=== PATIENT | male | born 1960 | race Caucasian/White ===

== ENCOUNTER 2022-08-07 11:01 | Inpatient (IN) | payer OTHER ==
--- NOTE | 2022-08-07 11:59 | ED ---
Weakness HPI - General Chief complaint: Weakness Stated complaint: Lethargic, back pain Time Seen by Provider: 08/07/22 11:26 Source: patient, RN notes reviewed Mode of arrival: wheelchair Limitations: no limitations - History of Present Illness Initial comments: This is a 61-year-old male who presents to the emergency department for generalized weakness. States that this has been progressive over the last several months. 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 His boss has also taken notice of this and recommended he come to the emergency department for evaluation. He has associated chest pain, shortness of breath, and back pain, which have also been progressive over the last few months. He does report feeling dizzy when he stands up too quickly. In general he attributes this weakness to aging. Patient is homeless and does not follow with any providers regularly. Denies any fevers, chills, sore throat, cough, palpitations, abdominal pain, nausea, vomiting, diarrhea, or headaches. MD Complaint: generalized weakness, lack of energy - Related Data Home Medications Medication Instructions Recorded Confirmed No Known Home Medications 08/07/22 08/07/22 Allergies Allergy/AdvReac Type Severity Reaction Status Date / Time Penicillins Allergy Rash/Hives Verified 08/07/22 16:01 Review of Systems ROS Statement: Those systems with pertinent positive or pertinent negative responses have been documented in the HPI. ROS Other: All systems not noted in ROS Statement are negative. Past Medical History Past Medical History: No Reported History History of Any Multi-Drug Resistant Organisms: None Reported Past Surgical History: Tonsillectomy Past Psychological History: No Psychological Hx Reported Smoking Status: Current every day smoker Past Alcohol Use History: None Reported Past Drug Use History: None Reported General Exam Limitations: no limitations General appearance: alert, other (Disheveled) Head exam: Present: atraumatic, normocephalic, normal inspection Respiratory exam: Present: normal lung sounds bilaterally. Absent: respiratory distress, wheezes, rales, rhonchi, stridor Cardiovascular Exam: Present: regular rate, normal rhythm, normal heart sounds. Absent: systolic murmur, diastolic murmur, rubs, gallop, clicks Neurological exam: Present: alert, oriented X3, CN II-XII intact Psychiatric exam: Present: normal affect, normal mood Skin exam: Present: warm, dry, intact, normal color. Absent: rash Course Vital Signs 08/07/22 08/07/22 08/07/22 11:20 12:14 14:37 Temperature 98.1 F Pulse Rate 95 100 92 Respiratory 16 18 16 Rate Blood Pressure 104/66 102/87 99/60 O2 Sat by Pulse 98 98 96 Oximetry Medical Decision Making - Medical Decision Making This is a 61-year-old male who presents to the emergency department for weakness. Was pt. sent in by a medical professional or institution? @ -No Did you speak to anyone other than the patient for history? @ -No Did you review nursing and triage notes? @ -Yes, and I agree, it is accurate with regards to the patient's symptoms. Were old charts reviewed? @ -No Differential Diagnosis? @ -Differential Weakness: Hypoglycemia, shock, sepsis, hyponatremia, anemia, infection, VT, ETOH, adverse medicine reaction, overdose, stroke, this is not meant to be an all-inclusive list. EKG interpreted by me (3pts min.)? @ -Sinus rhythm. Ventricular rate 87 bpm, ID interval 146 ms, QRS duration 109 ms, QTC 427 ms. X-rays interpreted by me (1pt min.)? @ -Chest x-ray obtained. My interpretation identifies a right upper lobe lung mass. CT interpreted by me (1pt min.)? @ -Computed tomography scan of the chest obtained. My interpretation again identifies the right upper lobe lung mass. What testing was considered but not performed? (CT, X-rays, U/S, labs)? Why? @ -None What meds were considered but not given? Why? @ -None Did you discuss the management of the patient with other professionals? @ -Yes, Dr. Vee, who accepts the patient for admission. Did you reconcile home meds? @ -Yes Was smoking cessation discussed for >3mins.? @ -I discussed smoking cessation for greater than 3 minutes. The risk of s moking were discussed with the patient including but not limited to risks of cancer, stroke, coronary artery disease and COPD. Also discussed with patient were multiple methods of quitting smoking. Lastly we discussed the financial cost of smoking. Was critical care preformed (if so, how long)? @ -No Were there social determinants of health that impacted care today? How? (Homelessness, low income, unemployed, alcoholism, drug addiction, t ransportation, low edu. Level, literacy, decrease access to med. care, [facility], rehab)? @ -The patient is homeless, decreasing his access to healthcare and contributing to his poor overall health status. Was there de-escalation of care discussed even if they declined? (Discuss DNR or withdrawal of care, Hospice)? @ -No What co-morbidities impacted this encounter? (DM, HTN, Smoking, COPD, CAD, Cancer, CVA, Hep., AIDS, mental health diagnosis, sleep apnea, morbid obesity)? @ -Tobacco use Was patient admitted / discharged? @ -Admitted. Lab work obtained with findings suggestive of anemia and hyponatremia. Chest x-ray obtained initially revealing a right suprahilar mass. We subsequently obtained a computed tomography scan of the chest. This revealed a suspicious right upper lobe mass with possible metastases to the bilateral adrenal glands. Patient also has positive orthostatics. The patient is noted to be homeless and does not follow with any providers regularly. There is concern that he will be lost to follow-up if he were to be discharged to follow-up on an outpatient basis. Will admit patient to medicine with pulmonology and hematology/oncology consults for further evaluation of possible malignancy. Undiagnosed new problem with uncertain prognosis? @ -None Drug Therapy requiring intensive monitoring for toxicity (Heparin, Nitro, Insulin, Cardizem)? @ -None Were any procedures done? @ -None Diagnosis/symptom? @ -Weakness, chest pain, SOB Acute, or Chronic, or Acute on Chronic? @ -Chronic Uncomplicated (without systemic symptoms) or Complicated (systemic symptoms)? @ -Complicated Side effects of treatment? @ -None Exacerbation, Progression, or Severe Exacerbation] @ -Progression Poses a threat to life or bodily function? @ -Yes Diagnosis/symptom? @ -Right lung mass Acute, or Chronic, or Acute on Chronic? @ -Likely chronic, but newly diagnosed Uncomplicated (without systemic symptoms) or Complicated (systemic symptoms)? @ -Complicated Side effects of treatment? @ -None Exacerbation, Progression, or Severe Exacerbation] @ -Progression Poses a threat to life or bodily function? @ -Yes This case was discussed in detail with the attending ED physician, Dr. Ji. Presentation, findings, and treatment plan discussed in detail as well. - Lab Data Result diagrams: 08/07/22 11:51 08/07/22 11:51 Lab Results 08/07/22 08/07/22 08/07/22 Range/Units 11:51 11:51 11:51 WBC 4.4 (3.8-10.6) k/uL RBC 3.50 L (4.30-5.90) m/uL Hgb 8.2 L (13.0-17.5) gm/dL Hct 26.4 L (39.0-53.0) % MCV 75.4 L (80.0-100.0) fL MCH 23.4 L (25.0-35.0) pg MCHC 31.1 (31.0-37.0) g/dL RDW 17.2 H (11.5-15.5) % Plt Count 450 (150-450) k/uL MPV 6.7 Neutrophils % 69 % Lymphocytes % 18 % Monocytes % 8 % Eosinophils % 3 % Basophils % 0 % Neutrophils # 3.0 (1.3-7.7) k/uL Lymphocytes # 0.8 L (1.0-4.8) k/uL Monocytes # 0.3 (0-1.0) k/uL Eosinophils # 0.1 (0-0.7) k/uL Basophils # 0.0 (0-0.2) k/uL Hypochromasia Slight Anisocytosis Slight Microcytosis Slight PT 10.6 (9.0-12.0) sec INR 1.0 (<1.2) APTT 32.8 H (22.0-30.0) sec Sodium (137-145) mmol/L Potassium (3.5-5.1) mmol/L Chloride (98-107) mmol/L Carbon Dioxide (22-30) mmol/L Anion Gap mmol/L BUN (9-20) mg/dL Creatinine (0.66-1.25) mg/dL Est GFR (CKD-EPI)AfAm (>60 ml/min/1.73 sqM) Est GFR (CKD-EPI)NonAf (>60 ml/min/1.73 sqM) Glucose (74-99) mg/dL Plasma Lactic Acid Richard (0.7-2.0) mmol/L Calcium (8.4-10.2) mg/dL Phosphorus (2.5-4.5) mg/dL Magnesium (1.6-2.3) mg/dL Total Bilirubin (0.2-1.3) mg/dL AST (17-59) U/L ALT (4-49) U/L Alkaline Phosphatase (38-126) U/L Troponin I (0.000-0.034) ng/mL Total Protein (6.3-8.2) g/dL Albumin (3.5-5.0) g/dL TSH (0.465-4.680) mIU/L Urine Color Urine Appearance (Clear) Urine pH (5.0-8.0) Ur Specific Haddock (1.001-1.035) Urine Protein (Negative) Urine Glucose (UA) (Negative) Urine Ketones (Negative) Urine Blood (Negative) Urine Nitrite (Negative) Urine Bilirubin (Negative) Urine Urobilinogen (<2.0) mg/dL Ur Leukocyte Esterase (Negative) Heterophile Antibody Negative (Negative) 08/07/22 08/07/22 08/07/22 Range/Units 11:51 11:51 11:51 WBC (3.8-10.6) k/uL RBC (4.30-5.90) m/uL Hgb (13.0-17.5) gm/dL Hct (39.0-53.0) % MCV (80.0-100.0) fL MCH (25.0-35.0) pg MCHC (31.0-37.0) g/dL RDW (11.5-15.5) % Plt Count (150-450) k/uL MPV Neutrophils % % Lymphocytes % % Monocytes % % Eosinophils % % Basophils % % Neutrophils # (1.3-7.7) k/uL Lymphocytes # (1.0-4.8) k/uL Monocytes # (0-1.0) k/uL Eosinophils # (0-0.7) k/uL Basophils # (0-0.2) k/uL Hypochromasia Anisocytosis Microcytosis PT (9.0-12.0) sec INR (<1.2) APTT (22.0-30.0) sec Sodium 133 L (137-145) mmol/L Potassium 4.2 (3.5-5.1) mmol/L Chloride 97 L (98-107) mmol/L Carbon Dioxide 27 (22-30) mmol/L Anion Gap 9 mmol/L BUN 10 (9-20) mg/dL Creatinine 0.60 L (0.66-1.25) mg/dL Est GFR (CKD-EPI)AfAm >90 (>60 ml/min/1.73 sqM) Est GFR (CKD-EPI)NonAf >90 (>60 ml/min/1.73 sqM) Glucose 103 H (74-99) mg/dL Plasma Lactic Acid Richard 0.7 (0.7-2.0) mmol/L Calcium 8.7 (8.4-10.2) mg/dL Phosphorus 4.3 (2.5-4.5) mg/dL Magnesium 2.2 (1.6-2.3) mg/dL Total Bilirubin 0.4 (0.2-1.3) mg/dL AST 21 (17-59) U/L ALT 18 (4-49) U/L Alkaline Phosphatase 83 (38-126) U/L Troponin I (0.000-0.034) ng/mL Total Protein 7.0 (6.3-8.2) g/dL Albumin 3.5 (3.5-5.0) g/dL TSH 0.654 (0.465-4.680) mIU/L Urine Color Light Yellow Urine Appearance Clear (Clear) Urine pH 7.5 (5.0-8.0) Ur Specific Haddock 1.010 (1.001-1.035) Urine Protein Negative (Negative) Urine Glucose (UA) Negative (Negative) Urine Ketones Negative (Negative) Urine Blood Negative (Negative) Urine Nitrite Negative (Negative) Urine Bilirubin Negative (Negative) Urine Urobilinogen <2.0 (<2.0) mg/dL Ur Leukocyte Esterase Negative (Negative) Heterophile Antibody (Negative) 08/07/22 Range/Units 11:51 WBC (3.8-10.6) k/uL RBC (4.30-5.90) m/uL Hgb (13.0-17.5) gm/dL Hct (39.0-53.0) % MCV (80.0-100.0) fL MCH (25.0-35.0) pg MCHC (31.0-37.0) g/dL RDW (11.5-15.5) % Plt Count (150-450) k/uL MPV Neutrophils % % Lymphocytes % % Monocytes % % Eosinophils % % Basophils % % Neutrophils # (1.3-7.7) k/uL Lymphocytes # (1.0-4.8) k/uL Monocytes # (0-1.0) k/uL Eosinophils # (0-0.7) k/uL Basophils # (0-0.2) k/uL Hypochromasia Anisocytosis Microcytosis PT (9.0-12.0) sec INR (<1.2) APTT (22.0-30.0) sec Sodium (137-145) mmol/L Potassium (3.5-5.1) mmol/L Chloride (98-107) mmol/L Carbon Dioxide (22-30) mmol/L Anion Gap mmol/L BUN (9-20) mg/dL Creatinine (0.66-1.25) mg/dL Est GFR (CKD-EPI)AfAm (>60 ml/min/1.73 sqM) Est GFR (CKD-EPI)NonAf (>60 ml/min/1.73 sqM) Glucose (74-99) mg/dL Plasma Lactic Acid Richard (0.7-2.0) mmol/L Calcium (8.4-10.2) mg/dL Phosphorus (2.5-4.5) mg/dL Magnesium (1.6-2.3) mg/dL Total Bilirubin (0.2-1.3) mg/dL AST (17-59) U/L ALT (4-49) U/L Alkaline Phosphatase (38-126) U/L Troponin I <0.012 (0.000-0.034) ng/mL Total Protein (6.3-8.2) g/dL Albumin (3.5-5.0) g/dL TSH (0.465-4.680) mIU/L Urine Color Urine Appearance (Clear) Urine pH (5.0-8.0) Ur Specific Haddock (1.001-1.035) Urine Protein (Negative) Urine Glucose (UA) (Negative) Urine Ketones (Negative) Urine Blood (Negative) Urine Nitrite (Negative) Urine Bilirubin (Negative) Urine Urobilinogen (<2.0) mg/dL Ur Leukocyte Esterase (Negative) Heterophile Antibody (Negative) - Radiology Data Radiology results: report reviewed, image reviewed Disposition Clinical Impression: Weakness, Lung mass Disposition: ADMITTED IP TO THIS HOSP
[2022-08-07 12:01] LABS: Anisocytosis Slight; Basophils % (A) 0 %; Eosinophils # (A) 0.1 k/uL (0-0.7); Eosinophils % (A) 3 %; HCT 26.4 % (39.0-53.0); HGB 8.2 gm/dL (13.0-17.5); Hypochromasia Slight; Lymphocytes # (A) 0.8 k/uL (1.0-4.8); Lymphocytes % (A) 18 %; MCH 23.4 pg (25.0-35.0); MCHC 31.1 g/dL (31.0-37.0); MCV 75.4 fL (80.0-100.0); Mean Platelet Volume 6.7; Microcytosis Slight; Monocytes # (A) 0.3 k/uL (0-1.0); Monocytes % (A) 8 %; Neutrophils % (A) 69 %; Platelet Count 450 k/uL (150-450); RDW 17.2 % (11.5-15.5); WBC 4.4 k/uL (3.8-10.6)
[2022-08-07 12:10] LABS: Partial Thromboplastin Time 32.8 sec (22.0-30.0); Prothrombin Time 10.6 sec (9.0-12.0)
[2022-08-07] MEDS ORDERED: SODIUM CHLORIDE 0.9% 1,000 ML IV STA (12:16)
--- NOTE | 2022-08-07 12:18 | XR ---
EXAMINATION TYPE: XR chest 2V DATE OF EXAM: 08/07/2022 COMPARISON: NONE HISTORY: Shortness of breath TECHNIQUE: Frontal and lateral views of the chest are obtained. FINDINGS: Scattered senescent parenchymal changes noted. Hyperinflation compatible with COPD. There is right suprahilar mass measuring 4.4 cm. There is also adjacent nodular density measuring 1.8 cm. The remainder of the lungs are clear. Heart size is stable. Mediastinal structures are stable and grossly unremarkable. No evidence for hilar prominence. Degenerative changes dorsal spine. IMPRESSION: 1. There is right suprahilar mass measuring 4.4 cm. There is also adjacent nodular density measuring 1.8 cm. The remainder of the lungs are clear.
[2022-08-07 12:21] LABS: ALT 18 U/L (4-49); AST 21 U/L (17-59); African American GFR (CKD) >90 (>60 ml/min/1.73 sqM); Albumin 3.5 g/dL (3.5-5.0); Alkaline Phosphatase 83 U/L (38-126); Anion Gap 9 mmol/L; Blood Urea Nitrogen 10 mg/dL (9-20); Calcium 8.7 mg/dL (8.4-10.2); Carbon Dioxide 27 mmol/L (22-30); Chloride 97 mmol/L (98-107); Glucose 103 mg/dL (74-99); Magnesium 2.2 mg/dL (1.6-2.3); Non-African American GFR(CKD) >90 (>60 ml/min/1.73 sqM); Phosphorus 4.3 mg/dL (2.5-4.5); Potassium 4.2 mmol/L (3.5-5.1); Sodium 133 mmol/L (137-145); Total Bilirubin 0.4 mg/dL (0.2-1.3)
[2022-08-07] MEDS ORDERED: RX INFO: IV CONTRAST WAS GIVEN 1 EACH MISC MISCELLANE PRN (12:40)
[2022-08-07 13:14] LABS: Appearance,Urine Clear (Clear); Bilirubin,Urine Negative (Negative); Blood,Urine Negative (Negative); Color,Urine Light Yellow; Glucose,Urine (UA) Negative (Negative); Ketones,Urine Negative (Negative); Leukocyte Esterase,Urine Negative (Negative); Nitrite,Urine Negative (Negative); PH, Urine 7.5 (5.0-8.0); Protein,Urine Negative (Negative); Urobilinogen,Urine <2.0 mg/dL (<2.0)
--- NOTE | 2022-08-07 13:14 | CT ---
EXAMINATION TYPE: CT chest w con DATE OF EXAM: 08/07/2022 COMPARISON: Chest radiograph same day HISTORY: Lung mass CT DLP: 327 mGycm Automated exposure control for dose reduction was used. CONTRAST: CT scan of the chest is performed with IV Contrast, patient injected with 100 mL of Isovue 300. FINDINGS: LUNGS: There is a solid mass right upper lobe with irregular margins measuring approximately 3.7 cm c raniocaudal by 3.1 cm transverse by 3.8 cm AP dimension. There is associated pleural thickening and i nternal increased density. This mass is felt to reflect malignancy until proven otherwise. Second nod ular density seen on chest radiograph is felt to reflect first rib end. There is extensive emphysemat ous bullous change right upper lobe medially extending to the mass. Emphysematous changes mild in deg ree left upper lobe. No additional nodules or masses seen. No infiltrate or volume loss. MEDIASTINUM: Low right paratracheal enlarged lymph node measures 1.2 cm. Subcentimeter AP window lymp h nodes identified. No additional adenopathy present within the mediastinum. Prominent right hilar ly mph node measures 1.2 cm. The heart is not enlarged. Mild atheromatous change thoracic aorta. Small h iatal hernia and distal esophageal wall thickening. UPPER ABDOMEN: Large metastatic mass to the right adrenal gland measuring 7.8 x 6.5 cm. Left adrenal nodule measures 2 cm. Changes of chronic pancreatitis. No obvious hepatic lesion is seen of the liver is incompletely imaged. OTHER: No definite bone destruction. IMPRESSION: 1. Right upper lobe mass felt to reflect malignancy until proven otherwise. Mildly enlarged mediasti nal and right hilar lymph nodes. 2. Metastatic mass to the right adrenal gland with small probable additional metastatic nodule left a drenal gland.
[2022-08-07] MEDS ORDERED: ACETAMINOPHEN TAB 325 MG TAB PO PRN (14:10)
[2022-08-07] MEDS ORDERED: ONDANSETRON 4 MG/2 ML VIAL IVP PRN (14:10)
[2022-08-07] MEDS ORDERED: NALOXONE 0.4 MG/ML 1 ML VIAL IV PRN (14:10)
[2022-08-07] MEDS ORDERED: HYDROcodone/APAP 5-325MG 1 EACH TAB PO PRN (14:10)
[2022-08-07] MEDS ORDERED: KETOROLAC 15 MG/ML 1 ML VIAL IVP PRN (14:10)
--- NOTE | 2022-08-07 23:31 | P.HPIM ---
History of Present Illness H&P Date: 08/07/22 Chief Complaint: Generalized weakness Patient is a 61-year-old male without significant past medical history presents to ER with complaints of generalized weakness and getting slower at work for the past few months. 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 His boss noticed that he has been weak and recommended to go to ER. Patient does have smoking history about half pack per day since age 14. Denies any complaints of chest pain or shortness of breath. No complaints of pain. Patient states that he feels dizzy when he stands up too quickly. Denies any fever or chills. No cough or sputum production. Patient is currently homeless and has not been follow-up with primary care physician and does not have any home medications. Patient states that his appetite has been poor recently and lost weight as well. Chest x-ray showed BEs right suprahilar mass measuring 4.4 cm. There is also adjacent nodular density measuring 1.[address] chest showed right upper lobe mass felt to reflect malignancy until proven otherwise. Mildly enlarged mediastinal and right hilar lymph nodes. Metastatic mass to the right adrenal gland with small probable additional metastatic nodule left adrenal gland. Laboratory data showed WBC 4.4 hemoglobin 8.2 and platelets 450 MCV 75.4 Sodium 133 potassium 4.2 chloride 97 bicarb is 27 BUN 10 and creatinine 0.69 blood sugar is 103 liver enzymes are elevated troponin x1 negative and TSH 0.650 Urinalysis is negative for infection Review of Systems Constitutional: Patient denies any fever or chills . Generalized weakness, weight loss and loss of appetite.. Abdomen: Patient denied any nausea or vomiting or abd. pain Cardiovascular: Patient denies any chest pain or short of breath no palpitations. Respiratory: patient denied any cough . no sputum production. Does complain of shortness of breath Neurologic: Patient denied any numbness or tingling headache. Musculoskeletal: Patient denies any complaints of joint swelling or deformity. Skin: Negative Psychiatric: Negative Endocrine: No heat or cold intolerance. No recent weight gain. Genitourinary: No dysuria or hematuria. All other 14 point ROS negative except the above Past Medical History Past Medical History: No Reported History History of Any Multi-Drug Resistant Organisms: None Reported Past Surgical History: Tonsillectomy Past Anesthesia/Blood Transfusion Reactions: No Reported Reaction Past Psychological History: No Psychological Hx Reported Smoking Status: Current every day smoker Past Alcohol Use History: None Reported Past Drug Use History: None Reported Medications and Allergies Home Medications Medication Instructions Recorded Confirmed Type No Known Home Medications 08/07/22 08/07/22 History Allergies Allergy/AdvReac Type Severity Reaction Status Date / Time Penicillins Allergy Rash/Hives Verified 08/07/22 16:01 Physical Exam Vitals: Vital Signs Temp Pulse Pulse Resp BP BP Pulse Ox 08/07/22 20:00 18 08/07/22 18:17 97.7 F 78 18 99/62 96 08/07/22 15:30 97.7 F 94 18 102/54 93 L 08/07/22 14:37 92 16 99/60 96 08/07/22 12:14 98.1 F 100 18 102/87 98 08/07/22 11:20 95 16 104/66 98 Intake and Output 08/07/22 08/07/22 08/07/22 06:59 14:59 22:59 Intake Total 240 Balance 240 Intake: Oral 240 Other: Voiding Method Toilet # Voids 1 Weight 72.575 kg 72.575 kg PHYSICAL EXAMINATION: Patient is lying in the bed comfortably, no acute distress, awake alert and oriented.. HEENT: Normocephalic. Neck is supple. Pupils reactive. Nostrils clear. Oral cavity is moist. Neck reveals no JVD, carotid bruits, or thyromegaly. CHEST EXAMINATION: Trachea is central. Symmetrical expansion. Lung sharif clear to auscultation and percussion. CARDIAC: Normal S1, S2 with no gallops. No murmurs ABDOMEN: Soft. Bowel sounds present. Nontender. No organomegaly. No abdominal bruits. Extremities: reveal no edema. No clubbing or cyanosis Neurologically awake, alert, oriented x3 with well-coordinated movements. No focal deficits noted Skin: No rash or skin lesions. Psychiatric: Coperative. Nonsuicidal, Musculoskeletal: No joint swelling or deformity. Normal range of motion. Results CBC & Chem 7: 08/08/22 06:02 08/08/22 06:02 Labs: Abnormal Lab Results - Last 24 Hours (Table) 08/07/22 08/07/22 08/07/22 Range/Units 11:51 11:51 11:51 RBC 3.50 L (4.30-5.90) m/uL Hgb 8.2 L (13.0-17.5) gm/dL Hct 26.4 L (39.0-53.0) % MCV 75.4 L (80.0-100.0) fL MCH 23.4 L (25.0-35.0) pg RDW 17.2 H (11.5-15.5) % Lymphocytes # 0.8 L (1.0-4.8) k/uL APTT 32.8 H (22.0-30.0) sec Sodium 133 L (137-145) mmol/L Chloride 97 L (98-107) mmol/L Creatinine 0.60 L (0.66-1.25) mg/dL Glucose 103 H (74-99) mg/dL Thrombosis Risk Factor Assmnt - DVT/VTE Prophylaxis DVT/VTE Prophylaxis: Pharmacologic Prophylaxis ordered - Choose All That Apply Each Risk Factor Represents 2 Points: Age 61-74 years Thrombosis Risk Factor Assessment Total Risk Factor Score: 2 Thrombosis Risk Factor Assessment Level: Low Risk Assessment and Plan Assessment: New onset right upper lobe mass highly suspicious for malignancy with mildly enlarged mediastinal and right hilar lymph nodes. Possible metastatic mass to the right adrenal gland and additional metastatic nodule in the left adrenal gland. Microcytic anemia rule out iron deficiency and anemia of chronic disease Hypovolemic hyponatremia Generalized weakness and weight loss. No recent follow-up with primary care physician DVT prophylaxis with heparin subcu Plan: Patient will be on IV hydration in the ER. Continue with pain management. CT thorax showed highly suspicious for right upper lobe malignancy. Pulmonary was consulted for possible bronchoscopy and biopsy and oncology consult also. Continue with symptomatic management and follow-up closely. Prognosis is guarded at this time. Iron profile was ordered. Time with Patient: Greater than 30
[2022-08-07] MEDS: HEPARIN SODIUM,PORCINE/PF 5,000 UNIT/0.5 ML SYRINGE SQ SCH (23:55)
--- NOTE | 2022-08-08 03:43 | P.CNPUL ---
History of Present Illness Consult date: 08/08/22 Requesting physician: Melinda Samuel Reason for consult: lung mass Chief complaint: Weakness History of present illness: I'm seeing this patient today 08/08/2022 in new consultation on the general medical floor for a new right upper lobe lung mass. Patient is a 61-year-old white male with past medical history significant for current smoker with a [id number] history, polysubstance abuse, he reportedly stopped smoking crack cocaine approximately 6 months ago, and he is homeless. He does not have health insurance, and has not seen a doctor in some time. Patient presented [facility] yesterday afternoon due to being weak for the past month. Patient also reports symptoms of dizziness, approximately 10 pound weight loss over the past month, and right upper non-radiating chest pain. He denies any fever,cough, hemoptysis. He denies any personal history of cancer. On arrival, patient's chest x-ray showed a right suprahilar mass like consolidation measuring 4.4 cm with adjacent nodular densities of 1.8 cm. A follow-up chest CT with contrast showed a right upper lobe 3.7 x 3.1 cm mass felt to reflect malignancy. There were also mildly enlarged mediastinal and right hilar lymph nodes. Possible metastatic lesions were found on the right adrenal gland and a probable small metastatic nodule was seen on the left adrenal gland. CBC on arrival showed a WBC count of 4.4, hemoglobin 8.2, hematocrit 26.4, platelets 450,000. Patient's BMP was essentially within normal limits. Troponin negative 1. Patient is currently resting in bed, on room air, in no acute distress. Denies any significant shortness of breath at rest. Vital signs are currently stable. Review of Systems REVIEW OF SYSTEMS: CONSTITUTIONAL: See HPI. EYES: Denies change in vision. EARS, NOSE, MOUTH, THROAT: Denies headaches, denies sore throat. CARDIOVASCULAR: Denies radiating chest pain, palpitations or syncopal episodes. RESPIRATORY: Denies shortness of breath, cough, congestion or hemoptysis. GASTROINTESTINAL: Denies change in appetite, abdominal pain, nausea and vomiting, or diarrhea GENITOURINARY: Denies hematuria, denies infections. MUSKULOSKELETAL: Denies pain, denies swelling. INTEGUMENTARY: Denies rash, denies eczema. NEUROLOGICAL: Denies recent memory loss, no recent seizure activity. PSYCHIATRIC: Denies anxiety, denies depression. HEMATOLOGIC/LYMPHATIC: Denies anemia, denies enlarged lymph node Past Medical History Past Medical History: No Reported History History of Any Multi-Drug Resistant Organisms: None Reported Past Surgical History: Tonsillectomy Past Anesthesia/Blood Transfusion Reactions: No Reported Reaction Past Psychological History: No Psychological Hx Reported Smoking Status: Current every day smoker Past Alcohol Use History: None Reported Past Drug Use History: Cocaine Medications and Allergies Home Medications Medication Instructions Recorded Confirmed Type No Known Home Medications 08/07/22 08/07/22 History Allergies Allergy/AdvReac Type Severity Reaction Status Date / Time Penicillins Allergy Rash/Hives Verified 08/07/22 16:01 Physical Exam Vitals: Vital Signs Temp Pulse Pulse Resp BP BP Pulse Ox 08/08/22 01:33 97.7 F 63 18 120/68 96 08/07/22 20:00 18 08/07/22 18:17 97.7 F 78 18 99/62 96 08/07/22 15:30 97.7 F 94 18 102/54 93 L 08/07/22 14:37 92 16 99/60 96 08/07/22 12:14 98.1 F 100 18 102/87 98 08/07/22 11:20 95 16 104/66 98 Intake and Output 08/07/22 08/07/22 08/08/22 14:59 22:59 06:59 Intake Total 240 Balance 240 Intake: Oral 240 Other: Voiding Method Toilet # Voids 1 Weight 72.575 kg 72.575 kg GENERAL EXAM: Alert, disheveled, 61-year-old white male, comfortable in no a pparent distress. HEAD: Normocephalic and atraumatic EYES: Normal reaction of pupils, equal size. NOSE: Clear with pink turbinates. THROAT: No erythema or exudates. Poor dentition NECK: No masses, no JVD. CHEST: No chest wall deformity. LUNGS: Equal air entry with dullness heard over the right upper lobe. No crackles, wheeze, rhonchi. On room air. No conversational dyspnea or accessory muscle use.. CVS: S1 and S2 normal with no audible murmur, regular rhythm. No extra heart sounds ABDOMEN: No hepatosplenomegaly, active bowel sounds, no guarding or rigidity. SPINE: No scoliosis or deformity SKIN: No rashes CENTRAL NERVOUS SYSTEM: No focal deficits, tone is normal in all 4 extremities. EXTREMITIES: There is no peripheral edema, clubbing, or cyanosis. Peripheral pulses are intact. Results - Laboratory Findings CBC and BMP: 08/07/22 11:51 08/07/22 11:51 PT/INR, D-dimer PT 10.6 sec (9.0-12.0) 08/07/22 11:51 INR 1.0 (<1.2) 08/07/22 11:51 Abnormal lab findings: Abnormal Labs 08/07/22 08/07/22 08/07/22 11:51 11:51 11:51 RBC 3.50 L Hgb 8.2 L Hct 26.4 L MCV 75.4 L MCH 23.4 L RDW 17.2 H Lymphocytes # 0.8 L APTT 32.8 H Sodium 133 L Chloride 97 L Creatinine 0.60 L Glucose 103 H - Diagnostic Findings Chest x-ray: image reviewed CT scan - chest: image reviewed Assessment and Plan Assessment: New right upper lobe lung mass measuring 3.7 x 3.1 cm, highly suspicious for malignancy, with enlarged mediastinal and right hilar lymph nodes. Suspected metastatic mass of the right adrenal gland measuring 7.8 x 6.5 cm, and an additional small probable metastatic nodule of the left adrenal gland measuring 2 cm. Anemia, possibly chronic in nature. No obvious bleeding noted. Generalized weakness Current nicotine dependence history of polysubstance abuse, patient stopped using crack cocaine approximately 6 months ago homelessness Plan: Patient's medication, labs, chest CT, chest x-ray reviewed Patient will need biopsy for diagnostic purposes Will need follow-up outpatient PET scan Oncology was consulted Patient will need a social work consult. He is homeless, however, he does have transportation Nicotine replacement was offered On room air We will continue to follow I have personally seen and examined the patient, performed the documentation and the assessment and plan as written. Number of minutes spent on the visit:20 Time with Patient: Greater than 30
[2022-08-08] MEDS: HEPARIN SODIUM,PORCINE/PF 5,000 UNIT/0.5 ML SYRINGE SQ SCH ×2 (07:52→15:31)
[2022-08-08] MEDS ORDERED: IPRATROPIUM-ALBUTEROL 3 ML NEB INHALATION PRN (07:53)
[2022-08-08] MEDS: FAMOTIDINE 20 MG TAB PO SCH ×2 (07:54→20:54)
[2022-08-08] MEDS: NICOTINE 21MG/24HR PATCH TRANSDERM SCH (07:54)
[2022-08-08 10:50] LABS: % Iron Saturation 7.86 (15.00-50.00)
[2022-08-08] MEDS: SYMBICORT 160-4.5 MCG INHALER INHALATION SCH ×2 (10:52→18:45)
[2022-08-08 11:17] LABS: Basophils # (A) 0.02 X 10*3/uL (0.00-0.10); Basophils % (A) 0.5 %; Eosinophils # (A) 0.17 X 10*3/uL (0.04-0.35); Eosinophils % (A) 4.2 %; HCT 27.2 % (39.6-50.0); HGB 7.9 g/dL (13.0-17.0); Immature Grans, Automated 0.5 %; Lymphocytes # (A) 0.86 X 10*3/uL (0.90-5.00); Lymphocytes % (A) 21.4 %; MCH 22.4 pg (27.0-32.0); MCV 77.1 fL (80.0-97.0); Mean Platelet Volume 9.2 fL (9.5-12.2); Monocytes # (A) 0.36 X 10*3/uL (0.20-1.00); NRBC Per 100 WBC 0 /100 WBCS (0.0-0.0); Neutrophils # (A) 2.58 X 10*3/uL (1.80-7.70); Neutrophils % (A) 64.4 %; Platelet Count 444 X 10*3/uL (140-440); RBC 3.53 X 10*6/uL (4.40-5.60); RDW 17.5 % (11.5-14.5); WBC 4.01 X 10*3/uL (4.50-10.00)
[2022-08-08 11:45] LABS: African American GFR (CKD) 116.4 (60.0-200.0); Anion Gap 10.4 mmol/L (10.00-18.00); BUN/Creat Ratio 10.86 Ratio (12.00-20.00); Blood Urea Nitrogen 7.6 mg/dL (9.0-27.0); Calcium 8.9 mg/dL (8.7-10.3); Carbon Dioxide 24.6 mmol/L (20.0-27.5); Non-African American GFR(CKD) 100.4 (60.0-200.0); Potassium 4.7 mmol/L (3.5-5.5)
[2022-08-08 15:24] LABS: Reticulocyte % 1.8 % (0.10-1.80)
[2022-08-08] MEDS: SODIUM FERRIC GLUCONAT-SUCROSE 125 MG in SODIUM CHLORIDE 0.9% 100 ML IVPB SCH (15:27)
[2022-08-08] MEDS: IOPAMIDOL CONTRAST (ORAL USE) VIAL PO PRN ×2 (16:00→17:04)
--- NOTE | 2022-08-08 20:27 | P.CONS ---
History of Present Illness - Reason for Consult Consult date: 08/08/22 Lung mass, microcytic, hypochromic anemia Requesting physician: Melinda Samuel - Chief Complaint Weakness - History of Present Illness Mr. Bailon is a pleasant man we have been asked to see for newly found rt lung mass, found on CXR when pt came to ER with c/o generalized weakness. He reports rt chest discomfort, decreased energy and maybe a little harder to breathe. CXR rt suprahilar mass 4.4cm, 1.[address] chest RUL mass, mildly enlarged rt hilar LN, suspicious areas in both adrenals R>L. Hgb 8.2, microcytic, hypochromic. Pt denies Hx of cancer, has smoked 1ppd since the age of 14. Denies significant wt. loss, hemoptysis, acute changes in bowel or bladder. He is currently homeless, is on no medications, has not had any age related cancer screens that he remembers. Review of Systems 10 point review of systems is negative except as stated in HPI Past Medical History Past Medical History: No Reported History History of Any Multi-Drug Resistant Organisms: None Reported Past Surgical History: Tonsillectomy Past Anesthesia/Blood Transfusion Reactions: No Reported Reaction Past Psychological History: No Psychological Hx Reported Smoking Status: Current every day smoker Past Alcohol Use History: None Reported Past Drug Use History: Cocaine Medications and Allergies Home Medications Medication Instructions Recorded Confirmed Type No Known Home Medications 08/07/22 08/07/22 History Allergies Allergy/AdvReac Type Severity Reaction Status Date / Time Penicillins Allergy Rash/Hives Verified 08/07/22 16:01 Physical Exam Vitals: Vital Signs Temp Pulse Pulse Resp BP BP Pulse Ox 08/08/22 07:22 98.2 F 67 18 105/56 99 08/08/22 01:33 97.7 F 63 18 120/68 96 08/07/22 20:00 18 08/07/22 18:17 97.7 F 78 18 99/62 96 08/07/22 15:30 97.7 F 94 18 102/54 93 L 08/07/22 14:37 92 16 99/60 96 08/07/22 12:14 98.1 F 100 18 102/87 98 08/07/22 11:20 95 16 104/66 98 Intake and Output 08/07/22 08/08/2208/08/23 22:59 06:59 14:59 Intake Total 240 Balance 240 Intake: Oral 240 Other: Voiding Method Toilet # Voids 1 2 1 Weight 72.575 kg - Constitutional General appearance: average body habitus, cooperative, no acute distress - EENT Eyes: anicteric sclerae, EOMI, poor dentition ENT: hearing grossly normal, normal oropharynx - Neck Neck: no lymphadenopathy - Respiratory Respiratory: right: rales, left: diminished - Cardiovascular Rhythm: regular Heart sounds: normal: S1, S2 Abnormal Heart Sounds: no systolic murmur, no diastolic murmur, no rub, no S3 Gallop, no S4 Gallop, no click, no other leg Peripheral Edema: bilateral: None - Gastrointestinal General gastrointestinal: no absent bowel sounds, no decreased bowel sounds, no distended, no hepatomegaly, no hyperactive bowel sounds, normal bowel sounds, no organomegaly, no rigid, no scaphoid, soft, no splenomegaly, no tenderness, no umbilical hernia, no ventral hernia - Integumentary Integumentary: normal - Neurologic Neurologic: CNII-XII intact - Musculoskeletal Musculoskeletal: strength equal bilaterally - Psychiatric Psychiatric: A&O x's 3, appropriate affect, intact judgment & insight Results CBC & Chem 7: 08/08/22 06:02 08/08/22 06:02 Labs: Abnormal Lab Results - Last 24 Hours (Table) 08/07/22 08/07/22 08/07/22 Range/Units 11:51 11:51 11:51 RBC 3.50 L (4.30-5.90) m/uL Hgb 8.2 L (13.0-17.5) gm/dL Hct 26.4 L (39.0-53.0) % MCV 75.4 L (80.0-100.0) fL MCH 23.4 L (25.0-35.0) pg RDW 17.2 H (11.5-15.5) % Lymphocytes # 0.8 L (1.0-4.8) k/uL APTT 32.8 H (22.0-30.0) sec Sodium 133 L (137-145) mmol/L Chloride 97 L (98-107) mmol/L Creatinine 0.60 L (0.66-1.25) mg/dL Glucose 103 H (74-99) mg/dL Iron (65-175) ug/dL TIBC (228-460) ug/dL % Saturation (15.00-50.00) Transferrin (204.0-354.0) mg/dL 08/07/22 Range/Units 11:51 RBC (4.30-5.90) m/uL Hgb (13.0-17.5) gm/dL Hct (39.0-53.0) % MCV (80.0-100.0) fL MCH (25.0-35.0) pg RDW (11.5-15.5) % Lymphocytes # (1.0-4.8) k/uL APTT (22.0-30.0) sec Sodium (137-145) mmol/L Chloride (98-107) mmol/L Creatinine (0.66-1.25) mg/dL Glucose (74-99) mg/dL Iron 18 L (65-175) ug/dL TIBC 224 L (228-460) ug/dL % Saturation 7.86 L (15.00-50.00) Transferrin 160.0 L (204.0-354.0) mg/dL Chest x-ray: report reviewed CT scan - chest: report reviewed Assessment and Plan (1) Lung mass Current Visit: Yes Status: Acute Priority: High Code(s): R91.8 - OTHER NONSPECIFIC ABNORMAL FINDING OF LUNG FIELD SNOMED Code(s): 244077754 (2) Microcytic hypochromic anemia Current Visit: Yes Status: Acute Priority: High Code(s): D50.9 - IRON DEFICIENCY ANEMIA, UNSPECIFIED SNOMED Code(s): 99401967 Plan: Lung mass -Reviewed with pt concerning findings on the CT chest, concern for malignancy, need for biopsy and additional imagining to complete work up -Pt agreed and is willing to proceed with additional work up -IR consulted for biopsy of lung mass, path pending -CT AP, NM bone scan and MRI of the brain with contrast have been ordered to complete staging Microcytic, hypochromic anemia -anemia work up ordered -transfuse for Hgb <7 Doctor attests: I performed a history and physical examination of this patient, developed impression and plan of care. Discussed with dictator. I agree with dictators note, documented as a scribe.
--- NOTE | 2022-08-08 21:22 | CT ---
EXAMINATION TYPE: CT abdomen pelvis w con DATE OF EXAM: 08/08/2022 COMPARISON: None. HISTORY: lung mass found yesterday, ca staging. CT DLP: 736.10 mGycm, Automated Exposure Control for Dose Reduction was Utilized. CONTRAST: CT scan of the abdomen and pelvis is performed with oral and with IV Contrast, patient injected with 100 mL of Isovue 300. FINDINGS: LUNG BASES: No significant abnormality is appreciated. LIVER/GB: No significant abnormality is appreciated. PANCREAS: Glandular calcifications throughout the pancreas greatest in the pancreatic head are presen t consistent with product of chronic pancreatitis. SPLEEN: No significant abnormality is seen. ADRENALS: Heterogeneous 7.0 x 5.7 cm right adrenal mass axial image 15 strongly suspicious for metast atic lesion. Smaller 2.4 x 2.2 cm left adrenal heterogeneous mass axial image 14 is noted. KIDNEYS: There is 3 mm nonobstructing right renal calculus coronal image 57. No left-sided nephrolith iasis. Symmetric cortical medullary uptake and excretion without hydronephrosis seen bilaterally. BOWEL: Oral contrast does not reach the level of terminal ileum. No suspicious small or large bowel dilatation. PROSTATE/SEMINAL VESICLES: No gross abnormality seen. LYMPH NODES: No greater than 1cm abdominal or pelvic lymph nodes are appreciated. OSSEOUS STRUCTURES: Well-defined round 2.9 cm lesion in the posterior S2 level favors Tarlov cyst wit h local mass affect or erosive change extending right of midline as there are no additional suspiciou s focal osseous lesions present. Moderate axial joint space loss in both hips. OTHER: Moderate peripheral plaque of the aorta extends into branch vessels. IMPRESSION: Right greater than left in size bilateral adrenal masses consistent with metastatic disea se from lung cancer. No additional suspicious masses or adenopathy to suggest metastatic disease. Stephanie dence of chronic pancreatitis and large right S2 Tarlov cyst with local mass effect are noted.
[2022-08-09] MEDS: HEPARIN SODIUM,PORCINE/PF 5,000 UNIT/0.5 ML SYRINGE SQ SCH ×4 (00:19→23:33)
--- NOTE | 2022-08-09 02:43 | P.PN ---
Subjective Progress Note Date: 08/08/22 Patient is a 61-year-old male without significant past medical history presents to ER with complaints of generalized weakness and getting slower at work for the past few months. 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 His boss noticed that he has been weak and recommended to go to ER. Patient does have smoking history about half pack per day since age 14. Denies any complaints of chest pain or shortness of breath. No complaints of pain. Patient states that he feels dizzy when he stands up too quickly. Denies any fever or chills. No cough or sputum production. Patient is currently homeless and has not been follow-up with primary care physician and does not have any home medications. Patient states that his appetite has been poor recently and lost weight as well. Chest x-ray showed BEs right suprahilar mass measuring 4.4 cm. There is also adjacent nodular density measuring 1.[address] chest showed right upper lobe mass felt to reflect malignancy until proven otherwise. Mildly enlarged mediastinal and right hilar lymph nodes. Metastatic mass to the right adrenal gland with small probable additional metastatic nodule left adrenal gland. Laboratory data showed WBC 4.4 hemoglobin 8.2 and platelets 450 MCV 75.4 Sodium 133 potassium 4.2 chloride 97 bicarb is 27 BUN 10 and creatinine 0.69 blood sugar is 103 liver enzymes are elevated troponin x1 negative and TSH 0.650 Urinalysis is negative for infection 08/08/2022 Patient is currently lying in the bed. Awake alert and oriented x3. No complaints of chest pain and shortness of breath is about the same. No fever no chills. No cough or sputum production. Patient was seen by oncology and pulmonary. IR guided lung biopsy was ordered. Laboratory data showed WBC 4.0 hemoglobin 7.9 and MCV 77.1 and platelets 444 iron profile showed TIBC 224 and saturation 7.86. Current medications reviewed. Objective - Vital Signs Vital signs: Vital Signs Temp 97.6 F 08/08/22 19:58 Pulse 80 08/08/22 19:58 Resp 18 08/08/22 19:58 BP 89/49 08/08/22 19:58 Pulse Ox 98 08/08/22 19:58 FiO2 Intake & Output 08/08/22 08/08/22 08/09/22 06:59 18:59 06:59 Intake Total 240 120 Output Total 600 Balance 240 -600 120 Intake: Oral 240 120 Output: Urine 600 Other: Voiding Method Toilet Toilet # Voids 2 1 1 - Exam PHYSICAL EXAMINATION: Patient is lying in the bed comfortably, no acute distress, awake alert and oriented.. HEENT: Normocephalic. Neck is supple. Pupils reactive. Nostrils clear. Oral cavity is moist. Neck reveals no JVD, carotid bruits, or thyromegaly. CHEST EXAMINATION: Trachea is central. Symmetrical expansion. Lung sharif clear to auscultation and percussion. CARDIAC: Normal S1, S2 with no gallops. No murmurs ABDOMEN: Soft. Bowel sounds present. Nontender. No organomegaly. No abdominal bruits. Extremities: reveal no edema. No clubbing or cyanosis Neurologically awake, alert, oriented x3 with well-coordinated movements. No focal deficits noted Skin: No rash or skin lesions. Psychiatric: Coperative. Nonsuicidal, Musculoskeletal: No joint swelling or deformity. Normal range of motion. - Labs CBC & Chem 7: 08/08/22 06:02 08/08/22 06:02 Labs: Abnormal Lab Results - Last 24 Hours (Table) 08/07/22 08/08/22 08/08/22 Range/Units 11:51 06:02 06:02 WBC 4.01 L (4.50-10.00) X 10*3/uL RBC 3.53 L (4.40-5.60) X 10*6/uL Hgb 7.9 L (13.0-17.0) g/dL Hct 27.2 L (39.6-50.0) % MCV 77.1 L (80.0-97.0) fL MCH 22.4 L (27.0-32.0) pg MCHC 29.0 L (32.0-37.0) g/dL RDW 17.5 H (11.5-14.5) % Plt Count 444 H (140-440) X 10*3/uL MPV 9.2 L (9.5-12.2) fL Lymphocytes # 0.86 L (0.90-5.00) X 10*3/uL BUN 7.6 L (9.0-27.0) mg/dL BUN/Creatinine Ratio 10.86 L (12.00-20.00) Ratio Iron 18 L (65-175) ug/dL TIBC 224 L (228-460) ug/dL % Saturation 7.86 L (15.00-50.00) Transferrin 160.0 L (204.0-354.0) mg/dL Ferritin (22.0-322.0) ng/mL 08/08/22 Range/Units 10:30 WBC (4.50-10.00) X 10*3/uL RBC (4.40-5.60) X 10*6/uL Hgb (13.0-17.0) g/dL Hct (39.6-50.0) % MCV (80.0-97.0) fL MCH (27.0-32.0) pg MCHC (32.0-37.0) g/dL RDW (11.5-14.5) % Plt Count (140-440) X 10*3/uL MPV (9.5-12.2) fL Lymphocytes # (0.90-5.00) X 10*3/uL BUN (9.0-27.0) mg/dL BUN/Creatinine Ratio (12.00-20.00) Ratio Iron (65-175) ug/dL TIBC (228-460) ug/dL % Saturation (15.00-50.00) Transferrin (204.0-354.0) mg/dL Ferritin 723.0 H (22.0-322.0) ng/mL Assessment and Plan Assessment: New onset right upper lobe mass highly suspicious for malignancy with mildly enlarged mediastinal and right hilar lymph nodes. Possible metastatic mass to the right adrenal gland and additional metastatic nodule in the left adrenal gland. Microcytic anemia iron deficiency and anemia of chronic disease Hypovolemic hyponatremia Generalized weakness and weight loss. No recent follow-up with primary care physician DVT prophylaxis with heparin subcu Plan: Patient will be on IV hydration in the ER. Continue with pain management. CT thorax showed highly suspicious for right upper lobe malignancy. Patient was seen by pulmonary and oncology. IR guided lung biopsy was ordered. Continue with symptomatic management and follow-up closely. Prognosis is guarded at this time. Continue with IV iron supplementation. Time with Patient: Greater than 30
[2022-08-09] MEDS: SYMBICORT 160-4.5 MCG INHALER INHALATION SCH ×2 (07:37→19:49)
[2022-08-09] MEDS: NICOTINE 21MG/24HR PATCH TRANSDERM SCH (08:10)
[2022-08-09] MEDS: FAMOTIDINE 20 MG TAB PO SCH ×2 (08:15→20:27)
[2022-08-09] MEDS ORDERED: SODIUM CHLORIDE 0.9% 500 ML 250 ML IV ONE (09:45)
--- NOTE | 2022-08-09 09:50 | CT ---
EXAMINATION TYPE: CT discontinued procedure DATE OF EXAM: 08/09/2022 COMPARISON: 08/08/2022 HISTORY: Discontinued procedure. CT DLP: 1060 mGycm The procedure is discussed with the patient, the risks, complications, benefits and alternatives, wer e discussed and any questions were answered. Informed consent was obtained. The patient is placed p syeda on the CT table, prepped and draped in the usual sterile fashion. Utilizing a 22-gauge Chiba needle access into the periphery of the right upper lobe mass was achieved when the patient experienced a vasovagal reaction and requested the procedure be discontinued. The p atient was managed with a vasovagal reaction and blood pressure shortly returned to normal but wished to discontinue the procedure. All elements of maximal barrier technique were utilized. The patient remained stable throughout the procedure with no immediate postprocedural complication. IMPRESSION: 1. Discontinued CT lung biopsy due to vasovagal reaction.
[2022-08-09] MEDS ORDERED: SODIUM CHLORIDE 0.9% 250 ML BAG IV STA (09:53)
[2022-08-09] MEDS ORDERED: SODIUM CHLORIDE 0.9% 500 ML BAG IV STA (10:13)
[2022-08-09 10:55] LABS: Basophils # (A) 0.03 X 10*3/uL (0.00-0.10); Basophils % (A) 0.8 %; Eosinophils # (A) 0.13 X 10*3/uL (0.04-0.35); Eosinophils % (A) 3.3 %; HCT 26.4 % (39.6-50.0); HGB 7.9 g/dL (13.0-17.0); Immature Grans, Automated 0.5 %; Lymphocytes # (A) 0.86 X 10*3/uL (0.90-5.00); Lymphocytes % (A) 21.7 %; MCHC 29.9 g/dL (32.0-37.0); MCV 76.7 fL (80.0-97.0); Mean Platelet Volume 9.2 fL (9.5-12.2); Monocytes # (A) 0.35 X 10*3/uL (0.20-1.00); Monocytes % (A) 8.8 %; NRBC Per 100 WBC 0 /100 WBCS (0.0-0.0); Neutrophils # (A) 2.57 X 10*3/uL (1.80-7.70); Neutrophils % (A) 64.9 %; Platelet Count 468 X 10*3/uL (140-440); RBC 3.44 X 10*6/uL (4.40-5.60); RDW 17.3 % (11.5-14.5); WBC 3.96 X 10*3/uL (4.50-10.00)
--- NOTE | 2022-08-09 11:48 | P.PN ---
Subjective Progress Note Date: 08/09/22 I'm seeing this patient today 08/08/2022 in new consultation on the general medical floor for a new right upper lobe lung mass. Patient is a 61-year-old white male with past medical history significant for current smoker with a [id number] history, polysubstance abuse, he reportedly stopped smoking crack cocaine approximately 6 months ago, and he is homeless. He does not have health insurance, and has not seen a doctor in some time. Patient presented [facility] yesterday afternoon due to being weak for the past month. Patient also reports symptoms of dizziness, approximately 10 pound weight loss over the past month, and right upper non-radiating chest pain. He denies any fever,cough, hemoptysis. He denies any personal history of cancer. On arrival, patient's chest x-ray showed a right suprahilar mass like consolidation measuring 4.4 cm with adjacent nodular densities of 1.8 cm. A follow-up chest CT with contrast showed a right upper lobe 3.7 x 3.1 cm mass felt to reflect malignancy. There were also mildly enlarged mediastinal and right hilar lymph nodes. Possible metastatic lesions were found on the right adrenal gland and a probable small metastatic nodule was seen on the left adrenal gland. CBC on arrival showed a WBC count of 4.4, hemoglobin 8.2, hematocrit 26.4, platelets 450,000. Patient's BMP was essentially within normal limits. Troponin negative 1. Patient is currently resting in bed, on room air, in no acute distress. Denies any significant shortness of breath at rest. Vital signs are currently stable. The patient is seen today 08/09/2022 in follow-up on the regular medical floor. He is currently awake and alert in no acute distress. Maintaining O2 saturations in the 90s on room air. White count 3.9. Hemoglobin 7.9. Platelet count 468. Computed tomography scan of the abdomen and pelvis revealed heterogenous 7.0 x 5.77 cm right adrenal mass strongly suspicious for metastatic lesion. Smaller 2.4 x 2.2 cm left adrenal mass noted. No additional suspicious masses or adenopathy. Suggest metastatic disease. Plan is for a CT guided fine-needle aspirate of the lung mass in the right upper lobe to be performed by interventional radiology today. MRI of the brain and bone scans are pending. Objective - Vital Signs Vital signs: Vital Signs Temp 98.3 F 08/09/22 07:56 Pulse 80 08/09/22 10:28 Resp 20 08/09/22 10:28 BP 118/69 08/09/22 10:28 Pulse Ox 97 08/09/22 10:28 FiO2 Intake & Output 08/08/22 08/09/22 08/09/22 18:59 06:59 18:59 Intake Total 360 Output Total 600 550 Balance -600 -190 Intake: Oral 360 Output: Urine 600 550 Other: Voiding Method Toilet # Voids 1 4 - Exam GENERAL EXAM: Alert, 61-year-old male, on room air, comfortable in no apparent distress. HEAD: Normocephalic and atraumatic EYES: Normal reaction of pupils, equal size. NOSE: Clear with pink turbinates. THROAT: No erythema or exudates. Poor dentition NECK: No masses, no JVD. CHEST: No chest wall deformity. LUNGS: Equal air entry with dullness heard over the right upper lobe. No crackles, wheeze, rhonchi. CVS: S1 and S2 normal with no audible murmur, regular rhythm. No extra heart sounds ABDOMEN: No hepatosplenomegaly, active bowel sounds, no guarding or rigidity. SPINE: No scoliosis or deformity SKIN: No rashes CENTRAL NERVOUS SYSTEM: No focal deficits, tone is normal in all 4 extremities. EXTREMITIES: There is no peripheral edema, clubbing, or cyanosis. Peripheral pulses are intact. - Labs CBC & Chem 7: 08/09/22 05:38 08/08/22 06:02 Labs: Abnormal Lab Results - Last 24 Hours (Table) 08/08/22 08/08/22 08/09/22 Range/Units 06:02 10:30 05:38 WBC 3.96 L (4.50-10.00) X 10*3/uL RBC 3.44 L (4.40-5.60) X 10*6/uL Hgb 7.9 L (13.0-17.0) g/dL Hct 26.4 L (39.6-50.0) % MCV 76.7 L (80.0-97.0) fL MCH 23.0 L (27.0-32.0) pg MCHC 29.9 L (32.0-37.0) g/dL RDW 17.3 H (11.5-14.5) % Plt Count 468 H (140-440) X 10*3/uL MPV 9.2 L (9.5-12.2) fL Lymphocytes # 0.86 L (0.90-5.00) X 10*3/uL BUN 7.6 L (9.0-27.0) mg/dL BUN/Creatinine Ratio 10.86 L (12.00-20.00) Ratio Ferritin 723.0 H (22.0-322.0) ng/mL Assessment and Plan Assessment: New right upper lobe lung mass measuring 3.7 x 3.1 cm, highly suspicious for malignancy, with enlarged mediastinal and right hilar lymph nodes. Suspected metastatic mass of the right adrenal gland measuring 7.8 x 6.5 cm, and an additional small probable metastatic nodule of the left adrenal gland measuring 2 cm. Anemia, possibly chronic in nature. No obvious bleeding noted. Generalized weakness Current nicotine dependence History of polysubstance abuse, patient stopped using crack cocaine approximately 6 months ago Homelessness Plan: The patient was seen and evaluated Labs and medications reviewed Plan is for CT-guided biopsy of the right lung mass today by IR MRI of the brain pending Bone scan pending Oncology is following Currently stable and on room air Educated regarding the importance of complete smoking cessation We will continue to follow I have personally seen and examined the patient, performed the documentation and the assessment and plan as written. Number of minutes spent on the visit: 10.
[2022-08-09] MEDS: SODIUM FERRIC GLUCONAT-SUCROSE 125 MG in SODIUM CHLORIDE 0.9% 100 ML IVPB SCH (11:59)
[2022-08-09] MEDS ORDERED: HYDROmorphone 0.5 MG/0.5 ML SYRINGE IVP PRN (13:15)
--- NOTE | 2022-08-09 13:59 | P.PN ---
Subjective Progress Note Date: 08/09/22 Principal diagnosis: lung mass At today's visit patient is resting comfortably in bed. He reports feeling improved today. Denies shortness of breath. Patient went down for IR biopsy of right lung mass this morning but unfortunately was unable to tolerate procedure, so it was terminated. Spoke with patient he stated that it was too painful. Spoke with family and patient that we will discuss with the pulmonology team to see if a bronchoscopy can be obtained. If not we will ask IR to repeat procedure tomorrow. Patient agreeable with plan. Objective - Vital Signs Vital signs: Vital Signs Temp 98.3 F 08/09/22 07:56 Pulse 77 08/09/22 11:30 Resp 18 08/09/22 11:30 BP 114/73 08/09/22 12:00 Pulse Ox 96 08/09/22 11:30 FiO2 Intake & Output 08/08/22 08/09/22 08/09/22 18:59 06:59 18:59 Intake Total 360 Output Total 600 550 Balance -600 -190 Intake: Oral 360 Output: Urine 600 550 Other: Voiding Method Toilet # Voids 1 4 - Constitutional General appearance: Present: average body habitus, no acute distress - EENT Eyes: Present: anicteric sclerae, EOMI ENT: Present: hearing grossly normal - Respiratory Details: Breathing is even and unlabored - Cardiovascular Details: Skin is warm and dry - Integumentary Integumentary: Present: pale - Neurologic Neurologic Comment(s): Grossly intact - Musculoskeletal Musculoskeletal: Present: generalized weakness - Psychiatric Psychiatric: Present: A&O x's 3 - Labs CBC & Chem 7: 08/09/22 05:38 08/08/22 06:02 Labs: Abnormal Lab Results - Last 24 Hours (Table) 08/08/22 08/08/22 08/09/22 Range/Units 10:30 10:30 05:38 WBC 3.96 L (4.50-10.00) X 10*3/uL RBC 3.44 L (4.40-5.60) X 10*6/uL Hgb 7.9 L (13.0-17.0) g/dL Hct 26.4 L (39.6-50.0) % MCV 76.7 L (80.0-97.0) fL MCH 23.0 L (27.0-32.0) pg MCHC 29.9 L (32.0-37.0) g/dL RDW 17.3 H (11.5-14.5) % Plt Count 468 H (140-440) X 10*3/uL MPV 9.2 L (9.5-12.2) fL Lymphocytes # 0.86 L (0.90-5.00) X 10*3/uL Ferritin 723.0 H (22.0-322.0) ng/mL Copper 1899 H ([phone]) ug/L Assessment and Plan (1) Lung mass Current Visit: Yes Status: Acute Priority: High Code(s): R91.8 - OTHER NONSPECIFIC ABNORMAL FINDING OF LUNG FIELD SNOMED Code(s): 654017699 (2) Microcytic hypochromic anemia Current Visit: Yes Status: Acute Priority: High Code(s): D50.9 - IRON DEFICIENCY ANEMIA, UNSPECIFIED SNOMED Code(s): 36813435 Plan: Lung mass -Reviewed with pt concerning findings on the CT chest, concern for malignancy, need for biopsy and additional imagining to complete work up -Pt agreed and is willing to proceed with additional work up -IR consulted for biopsy of lung mass, However patient was unable to tolerate procedure this morning, the procedure was canceled. Discussed case with pulmonology and he stated that they do not believe that they can obtain a biopsy via bronchoscopy. Spoke with interventional radiologist and he states that he will attempt the procedure again tomorrow. Will give Ativan 30 minutes prior to procedure. -CT AP revealed Right greater than left in size bilateral adrenal masses consistent with metastatic disease from lung cancer. No additional suspicious masses or adenopathy to suggest metastatic disease. Evidence of chronic pancreatitis and large right S2 tarlov cyst with local mass effect are noted -NM bone scan and MRI of the brain with contrast have been ordered to complete staging Microcytic, hypochromic anemia -Iron 18, iron saturation 7.8%, ferritin 723. Consistent with RUFINO, IV iron ordered. Vitamin B12 512. Folate, copper, MMA pending. -Hemoglobin 7.8, stable. Denies any episodes of bleeding -Please transfuse for Hgb <7
--- NOTE | 2022-08-09 15:34 | NM ---
EXAMINATION TYPE: NM bone scan whole body DATE OF EXAM: 08/09/2022 COMPARISON: NONE HISTORY: Lung mass Delayed whole-body scanning was performed following the injection of 24.5 mCi Tc 99m MDP. Images acq uired 4 hours post injection. FINDINGS: There is intense abnormal uptake involving the posterior upper right rib cage in the location of righ t pulmonary mass likely on the basis of pulmonary destructive metastases. Moderate intensity uptake in the sternoclavicular joints and shoulders likely post arthritic. Mild intensity uptake left greater trochanter likely in the basis of trochanteric bursitis. Mild intensity uptake throughout the mid and lower thoracic spine likely degenerative. Mildly increased uptake involving the right knee greater medially most typical of post arthritic bhatia ges. IMPRESSION: Intense abnormal uptake posterior margin right upper rib cage in the location of the neoplastic proce ss suspicious for destructive bony metastasis
--- NOTE | 2022-08-09 16:20 | MR ---
EXAMINATION TYPE: MR brain wo/w con DATE OF EXAM: 08/09/2022 COMPARISON: NONE HISTORY: AMS, lung mass probable cancer. TECHNIQUE: Multiplanar, multisequence images of the brain and brainstem is performed without and with IV contras t, utilizing 7.5 mL intravenous Gadavist . FINDINGS: Exam is suboptimal as patient unable to hold still. Diffusion weighted images demonstrate n o evidence of a recent infarct or other diffusion abnormality. There is mild to moderate ventricular and sulcal prominence. There are 2-3 tiny scattered foci of T2 hyperintensity throughout the white ma tter bilaterally. Midline structures show fairly homogeneous enhancing sellar mass with suprasellar extension. Measuri ng 2.2 cm transversely coronal image 31 x 2.3 cm AP diameter sagittal image 81 x 3.1 cm craniocaudal diameter sagittal image 83. Optic chiasm is well seen and suspected of based. There is adjacent incre ased T2 signal in the medial aspect of the bilateral temporal lobes greater on the left extending int o the posterior limb of the left internal capsule. No additional enhancing masses are seen. The dural venous sinuses appear patent. The visualized sinuses are clear and the globes are intact. Patchy flu id signal bilateral mastoid air cells is seen. IMPRESSION: 1. There is 3.1 cm lobulated homogeneous enhancing solid sellar mass with suprasellar extension and m ass effect worrisome for neoplasm. Pituitary macroadenoma needs to be considered among the broad diff erential. Metastatic disease unlikely but not excluded. Neurosurgical evaluation is advised.
--- NOTE | 2022-08-09 23:34 | PN ---
PROGRESS NOTE DATE OF SERVICE: 08/09/2022 SUBJECTIVE: This is a 61-year-old gentleman who was admitted with right lung mass, could not have biopsied it because of severe pain. No chest pain. No palpitations. The patient has multiple social issues also. OBJECTIVE: VITAL SIGNS: Pulse 78, blood pressure 118/69, respirations 18. CHEST: A few scattered rhonchi. ABDOMEN: Soft. NERVOUS SYSTEM: No focal deficits. LABORATORY DATA: Labs are reviewed. ASSESSMENT: 1. New onset right upper lobe mass, possible malignancy. 2. 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 3. Generalized weakness. 4. Anemia. 5. Multiple medical issues. RECOMMENDATIONS AND DISCUSSION: This is a 61-year-old gentleman who presented with multiple complex medical issues, I recommend to continue the current medications. Pain management. Attempt to repeat biopsy. Otherwise, PT/OT evaluation. target worker to evaluate the home situation. Guarded prognosis. Further recommendations to follow. MMODL / IJN: [id number] /
[2022-08-10 06:26] LABS: Methylmalonic Acid 0.21 umol/L (<0.40)
[2022-08-10] MEDS ORDERED: LORazepam 2 MG/ML INJ IV ONE (07:00)
[2022-08-10] MEDS: SYMBICORT 160-4.5 MCG INHALER INHALATION SCH ×2 (07:37→19:35)
[2022-08-10] MEDS: HEPARIN SODIUM,PORCINE/PF 5,000 UNIT/0.5 ML SYRINGE SQ SCH ×3 (08:55→23:24)
[2022-08-10] MEDS: SODIUM FERRIC GLUCONAT-SUCROSE 125 MG in SODIUM CHLORIDE 0.9% 100 ML IVPB SCH (08:55)
[2022-08-10] MEDS: NICOTINE 21MG/24HR PATCH TRANSDERM SCH (08:56)
[2022-08-10] MEDS: FAMOTIDINE 20 MG TAB PO SCH ×2 (08:56→20:08)
[2022-08-10 11:15] LABS: Basophils # (A) 0.03 X 10*3/uL (0.00-0.10); Basophils % (A) 0.5 %; Eosinophils # (A) 0.14 X 10*3/uL (0.04-0.35); Eosinophils % (A) 2.5 %; HGB 8.6 g/dL (13.0-17.0); Immature Grans, Automated 0.5 %; Lymphocytes # (A) 1.07 X 10*3/uL (0.90-5.00); Lymphocytes % (A) 19.2 %; MCH 22.6 pg (27.0-32.0); MCHC 29.7 g/dL (32.0-37.0); MCV 76.3 fL (80.0-97.0); Mean Platelet Volume 8.9 fL (9.5-12.2); Monocytes # (A) 0.46 X 10*3/uL (0.20-1.00); Monocytes % (A) 8.3 %; NRBC Per 100 WBC 0 /100 WBCS (0.0-0.0); Neutrophils # (A) 3.84 X 10*3/uL (1.80-7.70); Platelet Count 461 X 10*3/uL (140-440); RDW 17.3 % (11.5-14.5); WBC 5.57 X 10*3/uL (4.50-10.00)
[2022-08-10 11:28] LABS: African American GFR (CKD) 116.6 (60.0-200.0); BUN/Creat Ratio 12.5 Ratio (12.00-20.00); Blood Urea Nitrogen 8.7 mg/dL (9.0-27.0); Calcium 8.8 mg/dL (8.7-10.3); Carbon Dioxide 21.8 mmol/L (20.0-27.5); Non-African American GFR(CKD) 100.6 (60.0-200.0); Potassium 4.4 mmol/L (3.5-5.5)
--- NOTE | 2022-08-10 11:51 | XR ---
EXAMINATION TYPE: XR chest 1V portable DATE OF EXAM: 08/10/2022 COMPARISON: 08/07/2022 HISTORY: A postbiopsy TECHNIQUE: Single frontal view of the chest is obtained. FINDINGS: There is no focal air space opacity, pleural effusion, or pneumothorax seen. The cardiac silhouette size is within normal limits. The osseous structures are intact. Large right upper lobe lung mass. Arthropathy of the shoulders. Suspect there is rib destruction adjacent to the lung mass. IMPRESSION: 1. Large right upper lobe lung mass with adjacent rib destruction and no sizable pneumothorax post bi opsy.
--- NOTE | 2022-08-10 12:21 | CT ---
EXAMINATION TYPE: CT biopsy lung RT DATE OF EXAM: 08/10/2022 COMPARISON: 08/07/2022 HISTORY: right lung bx CT DLP: 1873 mGycm The procedure is discussed with the patient, the risks, complications, benefits and alternatives, wer e discussed and any questions were answered. Informed consent was obtained. The patient is placed p syeda on the CT table, prepped and draped in the usual sterile fashion. Utilizing a 18-gauge core biopsy needle access into the right upper lobe lobe mass was achieved with a single pass obtained. Pathology confirmed adequate sample. All elements of maximal barrier techni que were utilized. The patient remained stable throughout the procedure with no immediate postproced ural complication. IMPRESSION: 1. Successful CT guided core biopsy of a right upper lobe lung mass
--- NOTE | 2022-08-10 14:04 | P.PN ---
Subjective Progress Note Date: 08/10/22 I'm seeing this patient today 08/08/2022 in new consultation on the general medical floor for a new right upper lobe lung mass. Patient is a 61-year-old white male with past medical history significant for current smoker with a [id number] history, polysubstance abuse, he reportedly stopped smoking crack cocaine approximately 6 months ago, and he is homeless. He does not have health insurance, and has not seen a doctor in some time. Patient presented [facility] yesterday afternoon due to being weak for the past month. Patient also reports symptoms of dizziness, approximately 10 pound weight loss over the past month, and right upper non-radiating chest pain. He denies any fever,cough, hemoptysis. He denies any personal history of cancer. On arrival, patient's chest x-ray showed a right suprahilar mass like consolidation measuring 4.4 cm with adjacent nodular densities of 1.8 cm. A follow-up chest CT with contrast showed a right upper lobe 3.7 x 3.1 cm mass felt to reflect malignancy. There were also mildly enlarged mediastinal and right hilar lymph nodes. Possible metastatic lesions were found on the right adrenal gland and a probable small metastatic nodule was seen on the left adrenal gland. CBC on arrival showed a WBC count of 4.4, hemoglobin 8.2, hematocrit 26.4, platelets 450,000. Patient's BMP was essentially within normal limits. Troponin negative 1. Patient is currently resting in bed, on room air, in no acute distress. Denies any significant shortness of breath at rest. Vital signs are currently stable. The patient is seen today 08/09/2022 in follow-up on the regular medical floor. He is currently awake and alert in no acute distress. Maintaining O2 saturations in the 90s on room air. White count 3.9. Hemoglobin 7.9. Platelet count 468. Computed tomography scan of the abdomen and pelvis revealed heterogenous 7.0 x 5.77 cm right adrenal mass strongly suspicious for metastatic lesion. Smaller 2.4 x 2.2 cm left adrenal mass noted. No additional suspicious masses or adenopathy. Suggest metastatic disease. Plan is for a CT guided fine-needle aspirate of the lung mass in the right upper lobe to be performed by interventional radiology today. MRI of the brain and bone scans are pending. The patient is seen today 08/10/2022 in follow-up on the regular medical floor. He is currently resting fairly comfortably in bed. Awake and alert in no acute distress. He is maintaining O2 saturations in the 90s on room air. He's afebr ile. Hemodynamically stable. White count 5.5. Hemoglobin 8.6. Platelets 461. Sodium 133. Potassium 4.4. Bicarb 22. BUN 9. Creatinine 0.7. Bone scan revealed an intense abnormal uptake posterior margin right upper rib cage and the location of the neoplastic process suspicious for destructive bony metastasis. MRI of the brain revealed a 3.1 cm lobulated homogenous enhancing solid sellar mass with suprasellar extension and mass effect worrisome for neoplasm. The patient did not tolerate the attempt by IR for lung biopsy yesterday. Plan is for interventional radiology to perform a CT-guided fine- needle aspirate of the lung mass in with right upper lobe after the patient has received some Ativan. Objective - Vital Signs Vital signs: Vital Signs Temp 98.0 F 08/10/22 12:49 Pulse 78 08/10/22 12:49 Resp 18 08/10/22 12:49 BP 103/65 08/10/22 12:49 Pulse Ox 93 L 08/10/22 12:49 FiO2 Intake & Output 08/09/22 08/10/22 08/10/22 18:59 06:59 18:59 Intake Total 1500 Output Total 1000 Balance 500 Intake: Oral 1500 Output: Urine 1000 Other: Voiding Method Toilet # Voids 3 # Bowel Movements 1 - Exam GENERAL EXAM: Alert, thin 61-year-old male, on room air, comfortable in no apparent distress. HEAD: Normocephalic and atraumatic EYES: Normal reaction of pupils, equal size. NOSE: Clear with pink turbinates. THROAT: No erythema or exudates. Poor dentition NECK: No masses, no JVD. CHEST: No chest wall deformity. LUNGS: Equal air entry with dullness heard over the right upper lobe. No crackles, wheeze, rhonchi. CVS: S1 and S2 normal with no audible murmur, regular rhythm. No extra heart so unds ABDOMEN: No hepatosplenomegaly, active bowel sounds, no guarding or rigidity. SPINE: No scoliosis or deformity SKIN: No rashes CENTRAL NERVOUS SYSTEM: No focal deficits, tone is normal in all 4 extremities. EXTREMITIES: There is no peripheral edema, clubbing, or cyanosis. Peripheral pulses are intact. - Labs CBC & Chem 7: 08/10/22 07:08 08/10/22 07:08 Labs: Abnormal Lab Results - Last 24 Hours (Table) 08/08/22 08/10/22 08/10/22 Range/Units 10:30 07:08 07:08 RBC 3.80 L (4.40-5.60) X 10*6/uL Hgb 8.6 L (13.0-17.0) g/dL Hct 29.0 L (39.6-50.0) % MCV 76.3 L (80.0-97.0) fL MCH 22.6 L (27.0-32.0) pg MCHC 29.7 L (32.0-37.0) g/dL RDW 17.3 H (11.5-14.5) % Plt Count 461 H (140-440) X 10*3/uL MPV 8.9 L (9.5-12.2) fL Sodium 133 L (135-145) mmol/L BUN 8.7 L (9.0-27.0) mg/dL RBC Folate 1,026 H (280 - 791) ng/mL Assessment and Plan Assessment: New right upper lobe lung mass measuring 3.7 x 3.1 cm, highly suspicious for malignancy, with enlarged mediastinal and right hilar lymph nodes. Suspected metastatic mass of the right adrenal gland measuring 7.8 x 6.5 cm, and an additional small probable metastatic nodule of the left adrenal gland measuring [address]-guided FNA with core biopsy today 08/10/2022. The patient has intense abnormal uptake in the posterior margin on the right upper rib cage and the location of the neoplastic process suspicious for destructive bony me tastasis. Altered mental status suspect secondary to a 3.1 cm lobulated homogenous enhancing solid sellar mass with supra cellular extension and mass effect worrisome for neoplasm Anemia, possibly chronic in nature. No obvious bleeding noted Generalized weakness Current nicotine dependence History of polysubstance abuse, patient stopped using crack cocaine approximately 6 months ago Homelessness Plan: The patient was seen and evaluated Labs and medications reviewed Bone scan is also reviewed Plan is for CT-guided biopsy of the right lung mass today by IR MRI of the brain results reviewed Add Opaladron Neurology consult Recommend transfer to tertiary care center for neurosurgery consult We will continue to follow I have personally seen and examined the patient, performed the documentation and the assessment and plan as written. Number of minutes spent on the visit: 10.
[2022-08-10] MEDS: DEXAMETHASONE SOD PHOSPHATE 4 MG/ML 1 ML VIAL IVP SCH ×3 (15:43→23:24)
--- NOTE | 2022-08-10 16:53 | P.CNNES ---
History of Present Illness Consult date: 08/10/22 Requesting physician: Kiley Johnson Reason for Consult: brain lesion, concern for seizure History of Present Illness: This is a 61-year-old gentleman with history of significant tobacco use and history of substance abuse (crack cocaine) and stopped about 6 month ago presented emergency department because of generalized weakness. Neurology is consulted for brain mass and concern for seizure History was obtained from [facility] records since the patient is not a great historian. Seems the patient has been having about 10 pound weight loss over the past 1 month, feeling dizzy and then having right upper chest pain. Patient has a [id number] history. Was found to the patient the has new right upper lung mass highly suspicious for malignancy and that was suspected metastasis over the right adrenal as well as left adrenal gland. MRI of the brain was done during this admission and was found to the patient had 3.1 cm lobulated homogeneous enhancing solid sellar mass with suprasellar extension and mass effect dorsum for neoplasm. Patient denies of any headache, visual disturbance, any nausea or vomiting, denies of any focal weakness or numbness. He stated that his father had the history of cancer in his 70s. She denies any history of seizures or stroke that he has. As a result patient was started on Decadron by Pulmonary team. Some of the workup during his hospital visit: Vitamin B12 is 512, methylmalonic acid this point to 1, red blood cell folate is 1026 TSH is 0.654. As stated above he had MRI the brain w/ and w/o: 3.1 cm lobulated homogeneous enhancing solid sellar mass with suprasellar extension and mass effect dorsum for neoplasm. Pituitary macroadenoma needs to be considered along the broad differential. Metastatic disease unlikely but not excluded. Neurosurgical evaluation is advised. Whole body bone scan is reported as intense abnormal uptake posterior margin right upper rib cage in the location of the neoplastic process suspicious for destructive bony metastasis. Review of Systems Review of system: The 12 point system was reviewed and apparent positive and negative per HPI. Past Medical History Past Medical History: No Reported History History of Any Multi-Drug Resistant Organisms: None Reported Past Surgical History: Tonsillectomy Past Anesthesia/Blood Transfusion Reactions: No Reported Reaction Past Psychological History: No Psychological Hx Reported Smoking Status: Current every day smoker Past Alcohol Use History: None Reported Past Drug Use History: None Reported Medications and Allergies Home Medications Medication Instructions Recorded Confirmed Type No Known Home Medications 08/07/22 08/07/22 History Allergies Allergy/AdvReac Type Severity Reaction Status Date / Time Penicillins Allergy Rash/Hives Verified 08/07/22 16:01 Physical Examination - Vital Signs Vital Signs: Vital Signs Temp Pulse Resp BP Pulse Ox 08/10/22 14:53 90 18 101/70 94 L 08/10/22 14:38 89 18 107/70 94 L 08/10/22 14:22 81 16 106/65 96 08/10/22 14:07 86 16 106/68 98 08/10/22 13:52 85 16 107/70 97 08/10/22 13:38 88 18 122/74 97 08/10/22 13:22 90 16 118/77 99 08/10/22 13:07 85 16 109/70 98 08/10/22 12:49 98.0 F 78 18 103/65 93 L 08/10/22 12:37 79 18 104/67 92 L 08/10/22 12:22 77 16 104/68 90 L 08/10/22 12:07 80 16 95/62 91 L 08/10/22 11:35 74 16 113/68 95 08/10/22 11:30 55 L 16 107/66 96 08/10/22 11:25 48 L 16 86/44 94 L 08/10/22 11:21 16 109/70 95 08/10/22 11:00 84 18 107/68 97 08/10/22 07:24 98.0 F 79 20 100/60 94 L 08/10/22 03:00 98.7 F 78 16 105/63 98 08/09/22 19:20 98.3 F 87 16 111/67 96 Intake and Output 08/10/22 08/10/22 08/10/22 06:59 14:59 22:59 Intake Total 1500 Output Total 1000 200 Balance 500 -200 Intake: Oral 1500 Output: Urine 1000 200 Other: # Voids 1 GENERAL: The patient is laying in bed and is not in acute distress. CHEST: The heart rate is regular rate rhythm. No murmurs to auscultation. LUNG: Clear to auscultation bilaterally no wheezing noted throughout. Not l abored breathing. ABDOMEN/GI: Bowel sounds present in all 4 quadrants. No tenderness to palpation throughout. NEUROLOGICAL: Higher mental function: The patient is awake, alert, oriented to self, place and time. Patient is following commands. No aphasia and no neglect. Cranial nerves: The pupils are round, equal and reactive to light and accommodation. Visual sharif are full to confrontation throughout. Extraocular movement is intact no nystagmus is noted. Facial sensation is normal to touch throughout. The facial strength is normal throughout. Hearing is normal bilaterally to hand rub. Tongue is midline and moved [id number] without any difficulty. No dysarthria is noted. Shoulder shrug is normal bilaterally. Motor: The strength is left forearm flexion is 4+ to 5- bilaterally. Bilaterally hand post doctoral fellow is limited because of his arthritis but had at least 4+. Otherwise 5 over 5 throughout. Normal tone and bulk. Cerebellum: Normal finger to nose bilaterally. Sensation: Sensation is normal to touch throughout. Reflexes (right/left): 2+ throughout. Plantars are mute bilaterally. Results - Laboratory Findings CBC and BMP: 08/10/22 07:08 08/10/22 07:08 Abnormal Lab Findings: Abnormal Labs 08/07/22 08/07/22 08/07/22 11:51 11:51 11:51 WBC RBC 3.50 L Hgb 8.2 L Hct 26.4 L MCV 75.4 L MCH 23.4 L MCHC RDW 17.2 H Plt Count MPV Lymphocytes # 0.8 L APTT 32.8 H Sodium 133 L Chloride 97 L BUN Creatinine 0.60 L BUN/Creatinine Ratio Glucose 103 H Iron TIBC % Saturation Transferrin Ferritin RBC Folate Copper 08/07/22 08/08/22 08/08/22 11:51 06:02 06:02 WBC 4.01 L RBC 3.53 L Hgb 7.9 L Hct 27.2 L MCV 77.1 L MCH 22.4 L MCHC 29.0 L RDW 17.5 H Plt Count 444 H MPV 9.2 L Lymphocytes # 0.86 L APTT Sodium Chloride BUN 7.6 L Creatinine BUN/Creatinine Ratio 10.86 L Glucose Iron 18 L TIBC 224 L % Saturation 7.86 L Transferrin 160.0 L Ferritin RBC Folate Copper 08/08/22 08/08/22 08/09/22 10:30 10:30 05:38 WBC 3.96 L RBC 3.44 L Hgb 7.9 L Hct 26.4 L MCV 76.7 L MCH 23.0 L MCHC 29.9 L RDW 17.3 H Plt Count 468 H MPV 9.2 L Lymphocytes # 0.86 L APTT Sodium Chloride BUN Creatinine BUN/Creatinine Ratio Glucose Iron TIBC % Saturation Transferrin Ferritin 723.0 H RBC Folate 1,026 H Copper 1899 H 08/10/22 08/10/22 07:08 07:08 WBC RBC 3.80 L Hgb 8.6 L Hct 29.0 L MCV 76.3 L MCH 22.6 L MCHC 29.7 L RDW 17.3 H Plt Count 461 H MPV 8.9 L Lymphocytes # APTT Sodium 133 L Chloride BUN 8.7 L Creatinine BUN/Creatinine Ratio Glucose Iron TIBC % Saturation Transferrin Ferritin RBC Folate Copper Assessment and Plan Assessment: New Brain mass concerning for neoplasm (3.1 cm lobulated homogeneous enhancing solid sellar mass with suprasellar extension and mass effect). I feel mass is compressing on the left lateral horn ventricle with hydrocephalus of 3rd ventricle. New right upper lung mass suspicious for malignancy with suspected mets (bilateral adrenal) Anemia Nicotine dependence History of substance abuse and (crack cocaine and last use was 6 month ago Generalized weakness Plan: Agree with the Decadron use and currently the patient is on 4 mg every 6 hours. I ordered a routine EEG to rule out any active underlying seizure or discharges. I started him on Keppra 500mg every 12 hours as seizure prophylaxis for now. Oncology and team is on board as well as pulmonary team Recommend the patient to be transferred to a tertiary center Center for neurosurgical evaluation. Patient was counseled on tobacco cessation. We'll defer the rest of the medical management to the primary team. I discussed with the plan with the patient and primary team N.P. Thank you for the consultation. Time with Patient: Greater than 30
[2022-08-10] MEDS: levETIRAcetam 500 MG TAB PO SCH (20:08)
[2022-08-11] MEDS: DEXAMETHASONE SOD PHOSPHATE 4 MG/ML 1 ML VIAL IVP SCH ×3 (06:01→17:22)
[2022-08-11 07:47] VITALS: RESP 18
--- NOTE | 2022-08-11 08:01 | PN ---
PROGRESS NOTE DATE OF SERVICE: 08/10/2022 SUBJECTIVE: This is a 61-year-old gentleman who was admitted with possible malignancy, got 3.1 cm sellar mass with suprasellar extension. Pituitary lesion has to be considered and Dr. Tello from Neurology is recommending referral for Neurosurgery options. OBJECTIVE: VITAL SIGNS: Pulse is 89, blood pressure 107/70, respirations 18. CHEST: A few scattered rhonchi. ABDOMEN: Soft. NERVOUS SYSTEM: Diffusely weak. LABORATORY DATA: Reviewed. Hemoglobin 8.6. ASSESSMENT: 1. New-onset right upper lobe mass lesion for possible malignancy. 2. 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 3. A 3.1 cm solid sellar mass with suprasellar extension, possible neoplasm, metastatic versus pituitary. 4. Generalized weakness. 5. Anemia. 6. Multiple medical issues. RECOMMENDATIONS: Recommend to continue current medications. Continue symptomatic treatment. Otherwise, closely follow with Oncology, Neurology. Yesterday, sent a referral for neurosurgical evaluation. Prognosis extremely guarded. Further recommendation to follow. MMODL / IJN: [id number] /
[2022-08-11] MEDS: SYMBICORT 160-4.5 MCG INHALER INHALATION SCH ×2 (08:05→18:23)
[2022-08-11] MEDS: HEPARIN SODIUM,PORCINE/PF 5,000 UNIT/0.5 ML SYRINGE SQ SCH ×2 (08:17→15:54)
[2022-08-11] MEDS: NICOTINE 21MG/24HR PATCH TRANSDERM SCH (08:17)
[2022-08-11] MEDS: FAMOTIDINE 20 MG TAB PO SCH ×2 (08:18→22:10)
[2022-08-11] MEDS: levETIRAcetam 500 MG TAB PO SCH ×2 (08:18→22:10)
[2022-08-11] MEDS: SODIUM FERRIC GLUCONAT-SUCROSE 125 MG in SODIUM CHLORIDE 0.9% 100 ML IVPB SCH (09:14)
--- NOTE | 2022-08-11 11:56 | CDI ---
Documentation Clarification Form Date: 08/11/2022 11:39:55 AM From: Sabrina Pisano RN CCDS Phone: [phone] Admit Date: 08/07/2022 2:15:00 PM Patient Name: Nick Bailon Visit Number: [id number] Discharge Date: ATTENTION: The Clinical Documentation Specialists (CDI) and [facility] Coding Staff appreciate your assistance in clarifying documentation. Please respond to the clarification below the line at the bottom and electronically sign. The CDI & [facility] Coding staff will review the response and follow-up if needed. Please note: Queries are made part of the Legal Health Record. If you have any questions, please contact the author of this message via ITS. Dr. West Tello MD Your patient is receiving the following: Decadron, 08/10. Please clarify what condition/diagnosis is being treated. History/Risk Factors: 61-year-old male presents with weakness getting worse the past few months. 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 08/07, H&P. Clinical indicators: 08/09, MRI: There is 3.1 cm lobulated homogeneous enhancing solid sellar mass with suprasellar extension and mass effect worrisome for neoplasm. 08/10, Neurology consult: Agree with the Decadron use and currently the patient is on 4mg every 6 hours. Recommend the patient to be transferred to a tertiary center for neurosurgical evaluation. Treatment: 08/10 Decadron 4mg IVP Q6HR What diagnosis are you treating with decadron? [ ] Cerebral edema [ ] Prophylactic treatment [ ] No additional diagnosis [ ] Other, please specify_Due to vagogenic edema for brain mass. [ ] Unable to determine (Template Last Reviewed: May 2020) MTDD
--- NOTE | 2022-08-11 12:05 | CDI ---
Documentation Clarification Form Date: 08/11/2022 11:57:57 AM From: Sabrina Pisano Phone: [phone] Admit Date: 08/07/2022 2:15:00 PM Patient Name: Nick Bailon Visit Number: [id number] Discharge Date: ATTENTION: The Clinical Documentation Specialists (CDI) and [facility] Coding Staff appreciate your assistance in clarifying documentation. Please respond to the clarification below the line at the bottom and electronically sign. The CDI & [facility] Coding staff will review the response and follow-up if needed. Please note: Queries are made part of the Legal Health Record. If you have any questions, please contact the author of this message via ITS. Dr. Jade Hou Your patient has the documented symptom of Altered Mental Status 08/10, Pulmonary note. Additional clarification regarding the etiology/cause of this symptom is requested. History/Risk Factors: 61-year-old male presents with weakness getting worse the past few months. 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 08/07, H&P. Clinical Indicators: 08/09, MRI Brain: There is 3.1 cm lobulated homogeneous enhancing solid sellar mass with suprasellar extension and mass effect. Treatment: 08/10 Decadron 4mg IVP Q6HR, Neurology consult Please clarify the etiology of the symptom of Altered Mental Status: [ X ] Metabolic Encephalopathy due to brain mass [ ] Other condition (please specify) [ ] Unable to determine (Template Last Revised: May 2020) MTDD
[2022-08-11 12:11] VITALS: TEMP 98.5
--- NOTE | 2022-08-11 12:55 | P.PN ---
Subjective Progress Note Date: 08/11/22 I'm seeing this patient today 08/08/2022 in new consultation on the general medical floor for a new right upper lobe lung mass. Patient is a 61-year-old white male with past medical history significant for current smoker with a [id number] history, polysubstance abuse, he reportedly stopped smoking crack cocaine approximately 6 months ago, and he is homeless. He does not have health insurance, and has not seen a doctor in some time. Patient presented [facility] yesterday afternoon due to being weak for the past month. Patient also reports symptoms of dizziness, approximately 10 pound weight loss over the past month, and right upper non-radiating chest pain. He denies any fever,cough, hemoptysis. He denies any personal history of cancer. On arrival, patient's chest x-ray showed a right suprahilar mass like consolidation measuring 4.4 cm with adjacent nodular densities of 1.8 cm. A follow-up chest CT with contrast showed a right upper lobe 3.7 x 3.1 cm mass felt to reflect malignancy. There were also mildly enlarged mediastinal and right hilar lymph nodes. Possible metastatic lesions were found on the right adrenal gland and a probable small metastatic nodule was seen on the left adrenal gland. CBC on arrival showed a WBC count of 4.4, hemoglobin 8.2, hematocrit 26.4, platelets 450,000. Patient's BMP was essentially within normal limits. Troponin negative 1. Patient is currently resting in bed, on room air, in no acute distress. Denies any significant shortness of breath at rest. Vital signs are currently stable. The patient is seen today 08/09/2022 in follow-up on the regular medical floor. He is currently awake and alert in no acute distress. Maintaining O2 saturations in the 90s on room air. White count 3.9. Hemoglobin 7.9. Platelet count 468. Computed tomography scan of the abdomen and pelvis revealed heterogenous 7.0 x 5.77 cm right adrenal mass strongly suspicious for metastatic lesion. Smaller 2.4 x 2.2 cm left adrenal mass noted. No additional suspicious masses or adenopathy. Suggest metastatic disease. Plan is for a CT guided fine-needle aspirate of the lung mass in the right upper lobe to be performed by interventional radiology today. MRI of the brain and bone scans are pending. The patient is seen today 08/10/2022 in follow-up on the regular medical floor. He is currently resting fairly comfortably in bed. Awake and alert in no acute distress. He is maintaining O2 saturations in the 90s on room air. He's afebr ile. Hemodynamically stable. White count 5.5. Hemoglobin 8.6. Platelets 461. Sodium 133. Potassium 4.4. Bicarb 22. BUN 9. Creatinine 0.7. Bone scan revealed an intense abnormal uptake posterior margin right upper rib cage and the location of the neoplastic process suspicious for destructive bony metastasis. MRI of the brain revealed a 3.1 cm lobulated homogenous enhancing solid sellar mass with suprasellar extension and mass effect worrisome for neoplasm. The patient did not tolerate the attempt by IR for lung biopsy yesterday. Plan is for interventional radiology to perform a CT-guided fine- needle aspirate of the lung mass in with right upper lobe after the patient has received some Ativan. The patient is seen today 08/11/2022 in follow-up on the regular medical floor. Awake and alert in no acute distress. Continues to maintain good O2 saturations in the 90s on room air. Currently receiving iron replacement therapy. Lung biopsy pathology pending. Diane virus not detected. No other labs today. EEG pending. He's been initiated on Keppra. He is continued on Decadron 4 mg IVP every 6 hours. Continued on bronchodilators. NicoDerm patch in place. Awaiting transfer to tertiary care center to be seen by a neurosurgeon. Objective - Vital Signs Vital signs: Vital Signs Temp 98.5 F 08/11/22 11:55 Pulse 68 08/11/22 11:55 Resp 18 08/11/22 11:55 BP 114/70 08/11/22 11:55 Pulse Ox 97 08/11/22 11:55 FiO2 Intake & Output 08/10/22 08/11/22 08/11/22 18:59 06:59 18:59 Intake Total 1500 Output Total 090 310 7165 Balance -200 1000 -1400 Intake: Oral 1500 Output: Urine 340 822 0871 Other: Voiding Method Toilet # Voids 1 - Exam GENERAL EXAM: Alert, thin 61-year-old male, sitting up in bed, on room air, in no apparent distress. HEAD: Normocephalic and atraumatic EYES: Normal reaction of pupils, equal size. NOSE: Clear with pink turbinates. THROAT: No erythema or exudates. Poor dentition NECK: No masses, no JVD. CHEST: No chest wall deformity. LUNGS: Equal air entry with dullness heard over the right upper lobe. No crackles, wheeze, rhonchi. CVS: S1 and S2 normal with no audible murmur, regular rhythm. No extra heart sounds ABDOMEN: No hepatosplenomegaly, active bowel sounds, no guarding or rigidity. SPINE: No scoliosis or deformity SKIN: No rashes CENTRAL NERVOUS SYSTEM: No focal deficits, tone is normal in all 4 extremities. EXTREMITIES: There is no peripheral edema, clubbing, or cyanosis. Peripheral pulses are intact. - Labs CBC & Chem 7: 08/10/22 07:08 08/10/22 07:08 Assessment and Plan Assessment: New right upper lobe lung mass measuring 3.7 x 3.1 cm, highly suspicious for malignancy, with enlarged mediastinal and right hilar lymph nodes. Suspected metastatic mass of the right adrenal gland measuring 7.8 x 6.5 cm, and an additional small probable metastatic nodule of the left adrenal gland measuring [address]-guided FNA with core biopsy today 08/10/2022. The patient has intense abnormal uptake in the posterior margin on the right upper rib cage and the location of the neoplastic process suspicious for destructive bony metastasis. Pathology pending. Altered mental status with metabolic encephalopathy suspect secondary to a 3.1 cm lobulated homogenous enhancing solid sellar mass with supra cellular extension and mass effect worrisome for neoplasm Anemia, possibly chronic in nature. No obvious bleeding noted Generalized weakness Current nicotine dependence History of polysubstance abuse, patient stopped using crack cocaine approximately 6 months ago Homelessness Plan: The patient was seen and evaluated Medications reviewed EEG pending Continue David Sullivan Recommend transfer to tertiary care center for neurosurgery consult We will continue to follow I have personally seen and examined the patient, performed the documentation and the assessment and plan as written. Number of minutes spent on the visit: 10.
--- NOTE | 2022-08-11 13:14 | P.PN ---
Subjective Progress Note Date: 08/11/22 The patient is seen at bedside and feels about the same. He denies of any headache, nausea or vomiting or any new focal weakness. Per the primary team Raymundo Terrell and Yfn Saldaña did not accept the p atient for neurosurgical evaluation. Objective - Vital Signs Vital signs: Vital Signs Temp 98.5 F 08/11/22 11:55 Pulse 68 08/11/22 11:55 Resp 18 08/11/22 11:55 BP 114/70 08/11/22 11:55 Pulse Ox 97 08/11/22 11:55 FiO2 Intake & Output 08/10/22 08/11/22 08/11/22 18:59 06:59 18:59 Intake Total 1500 Output Total 337 401 7896 Balance -200 1000 -1400 Intake: Oral 1500 Output: Urine 263 748 4584 Other: Voiding Method Toilet # Voids 1 - Exam GENERAL: The patient is laying in bed and is not in acute distress. NEUROLOGICAL: Higher mental function: The patient is awake, alert, oriented to self, place and time. Patient is following commands. No aphasia and no neglect. Cranial nerves: The pupils are round, equal and reactive to light and accommodation. Visual sharif are full to confrontation throughout. Extraocular movement is intact no nystagmus is noted. Facial sensation is normal to touch throughout. The facial strength is normal throughout. Hearing is normal bilaterally to hand rub. Tongue is midline and moved [id number] without any difficulty. No dysarthria is noted. Shoulder shrug is normal bilaterally. Motor: The strength is left forearm flexion is 4+ to 5- bilaterally. 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 Otherwise 5 over 5 throughout. Normal tone and bulk. Cerebellum: Normal finger to nose bilaterally. Sensation: Sensation is normal to touch throughout. Reflexes (right/left): 2+ throughout. Plantars are mute bilaterally. Some of the workup during his hospital visit: Vitamin B12 is 512, methylmalonic acid this point to 1, red blood cell folate is 1026 TSH is 0.654. As stated above he had MRI the brain w/ and w/o: 3.1 cm lobulated homogeneous enhancing solid sellar mass with suprasellar extension and mass effect dorsum for neoplasm. Pituitary macroadenoma needs to be considered along the broad differential. Metastatic disease unlikely but not excluded. Neurosurgical evaluation is advised. Whole body bone scan is reported as intense abnormal uptake posterior margin right upper rib cage in the location of the neoplastic process suspicious for destructive bony metastasis. - Labs CBC & Chem 7: 08/10/22 07:08 08/10/22 07:08 Assessment and Plan Assessment: New Brain mass concerning for neoplasm (3.1 cm lobulated homogeneous enhancing solid sellar mass with suprasellar extension and mass effect). I feel mass is c ompressing on the left lateral horn ventricle with hydrocephalus of 3rd ventricle. New right upper lung mass suspicious for malignancy with suspected mets (bilateral adrenal) Anemia Nicotine dependence History of substance abuse and (crack cocaine and last use was 6 month ago Generalized weakness Plan: Agree with the Decadron use for use of vasogenic edema and currently the patient is on 4 mg every 6 hours. Pending EEG to rule out any active underlying seizure or discharges. On Keppra 500mg every 12 hours as seizure prophylaxis for now because of mass effect. Oncology and team is on board as well as pulmonary team He had lung biopsy yesterday and pending result. Recommend the patient to be transferred to a tertiary center Center for neurosurgical evaluation. I spoke with Dr. Ector Chan (Neurosurgeon)) over at [facility] and will attempt to bring patient over to his facility. Patient was counseled on tobacco cessation. We'll defer the rest of the medical management to the primary team. I discussed with the plan with the patient and primary team N.P. and Oncology team. Time with Patient: Greater than 30
--- NOTE | 2022-08-11 14:25 | P.CONS ---
History of Present Illness - Reason for Consult Consult date: 08/10/22 brain mass, dizziness Requesting physician: Clyde Hernandez - Chief Complaint dizziness - History of Present Illness The patient is a 61-year-old male with a history of tobacco abuse and homelessness. He presents to the ER with weakness, back pain and dizziness. 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 The patient presented to the emergency room at [facility] on August 07. He states that he had gradual onset of weakness, right upper back pain as well as dizziness. He underwent a CT scan of the chest upon arrival, which revealed a solid 3.1 x 3.8 cm right upper lung mass. There was significant emphysema present. Prominent right hilar and paratracheal lymph nodes are visible. There is a 7.8 cm right adrenal mass as well as a 2 cm left adrenal mass. A CT scan of the abdomen and pelvis redemonstrated the bilateral adrenal lesions as well as a likely cyst involving the S2. A subsequent bone scan performed on August 09 revealed some haziness in the posterior right upper ribs, likely correlating with invasion from the lung mass. MRI of the brain from the same day revealed a 3.1 cm lobulated, sellar mass with suprasellar extension. There was evidence of mass effect and vasogenic edema. 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 The patient underwent a CT-guided biopsy of the right upper lung mass on August 10. At the time of my consultation, the patient reports he has no difficulty with nausea. He has had some occasional headaches, but has been started on Decadron since his admission. He reports no diplopia, but admits that he has been intermittently dizzy with ambulation. He states that his right-sided posterior shoulder pain is approximately 4 out of 10. His sister Deb is on the phone during our consultation. Review of Systems Constitutional: Denies chills, Denies fever Eyes: denies blurred vision, denies diplopia Ears, nose, mouth and throat: Reports headache Respiratory: Reports cough, Reports dyspnea, Denies hemoptysis Gastrointestinal: Denies BRBPR, Denies change in bowel habits Musculoskeletal: Denies arm numbness/tingling Neurological: Reports balance difficulties, Denies confusion, Denies convulsions, Denies double vision, Denies memory loss, Denies numbness, Denies paralysis, Denies paresthesias, Denies seizures Psychiatric: Denies anxiety, Denies confusion Past Medical History Past Medical History: No Reported History History of Any Multi-Drug Resistant Organisms: None Reported Past Surgical History: Tonsillectomy Past Anesthesia/Blood Transfusion Reactions: No Reported Reaction Past Psychological History: No Psychological Hx Reported Smoking Status: Current every day smoker Past Alcohol Use History: None Reported Past Drug Use History: None Reported Medications and Allergies Home Medications Medication Instructions Recorded Confirmed Type No Known Home Medications 08/07/22 08/07/22 History Allergies Allergy/AdvReac Type Severity Reaction Status Date / Time Penicillins Allergy Rash/Hives Verified 08/07/22 16:01 Physical Exam Vitals: Vital Signs Temp Pulse Resp BP Pulse Ox 08/11/22 11:55 98.5 F 68 18 114/70 97 08/11/22 07:12 98.3 F 73 18 107/65 100 08/11/22 02:44 97.4 F L 62 16 107/66 96 08/10/22 19:00 98.0 F 81 16 121/74 93 L 08/10/22 14:53 90 18 101/70 94 L 08/10/22 14:38 89 18 107/70 94 L 08/10/22 14:22 81 16 106/65 96 Intake and Output 08/10/22 08/11/22 08/11/22 22:59 06:59 14:59 Intake Total 1500 Output Total 752 235 9027 Balance -200 1000 -1700 Intake: Oral 1500 Output: Urine 784 582 [id number] Other: Voiding Method Toilet # Voids 1 1 - Constitutional General appearance: disheveled, no acute distress - EENT Eyes: EOMI, PERRLA ENT: hearing grossly normal - Neck Neck: no lymphadenopathy - Respiratory Respiratory: bilateral: CTA - Cardiovascular Rhythm: regular - Integumentary Integumentary: no calor, no cellulitis - Neurologic Neurologic: CNII-XII intact - Musculoskeletal Musculoskeletal: strength equal bilaterally - Psychiatric Psychiatric: appropriate affect Results CBC & Chem 7: 08/10/22 07:08 08/10/22 07:08 CT scan - abdomen: report reviewed, image reviewed CT scan - chest: report reviewed, image reviewed CT scan - pelvis: report reviewed, image reviewed MRI - head: report reviewed, image reviewed Assessment and Plan Assessment: The patient is a 61-year-old male with a history of tobacco abuse and homelessness. He presents to the ER with weakness, back pain and dizziness. 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 Plan: 1. Suprasellar lesion: I discussed with the patient and his sister that I did agree with neurosurgical consultation. I explained that while this is an atypical location for a brain metastasis, but that this cannot be ruled out considering his presentation with likely new metastatic lung cancer. The patient reports no known history of pituitary adenoma. The patient and his sister expressed understanding that he would be transferred to a tertiary referral Center for neurosurgical evaluation. At this time continue Decadron/PPI and appreciate neuro recs. 2. New lung cancer: As detailed above, the patient has a new right upper lung mass with bilateral adrenal lesions, suspicious for newly diagnosed metastatic lung cancer. He underwent a CT-guided core biopsy of the right upper lobe mass earlier today, and we are awaiting pathology. This does appear suspicious clinically for a non-small cell lung cancer, but we will await the final report. I discussed with the patient that this lesion is likely causing some of his posterior shoulder pain, as there appears to be some superficial rib erosion deep to the mass. 3. Social situation: The patient states that he had recently been living at work, and that he has no insurance and no place to stay. He has a history of substance abuse, and it is not clear if he will be able to stay with any family members. The social barriers are likely to make his ultimate treatment much more difficult. He states that he normally resides near [place]. The patient would like to continue workup of his disease at this time to make fully informed decisions about his care. I was very clear with the patient and his sister that this has a clinical appearance of a lung cancer that has already likely spread. Time: I spent 45 minutes with this patient, of which greater than 50% of that time was spent counseling, coordinating care, and reviewing the risks, benefits, and all potential complications of radiation. Time with Patient: Greater than 30
--- NOTE | 2022-08-11 14:31 | P.PN ---
Subjective Progress Note Date: 08/11/22 This is a 61-year-old male who was recently admitted with increased weakness and weight loss over the last few months that have been progressively getting worse with concerns of malignancy as patient had new onset right upper lobe mass and recently underwent biopsy of that mass yesterday. Patient also undergoing neurological workup and had MRI of the brain which showed a 3.1 cm sellar mass with suprasellar extension concerning for neoplasm. Pulmonary sample builder following as well and has started the patient on IV steroids with neurology consult in both recommending transfer for neurosurgery evaluation. Multiple attempts yesterday made to tertiary hospitals and have refused the patient for services recommending awaiting the biopsy results to determine possible primary malignancy. Patient is reporting some diplopia today with visual disturbances and generalized weakness throughout. Pituitary lesion not excluded. Patient is currently afebrile with no reports of chest pain or shortness of breath. Patient is tolerating diet with not much of an appetite. Review of systems: Constitutional: No reports of fatigue, fever, or chills Cardiovascular: No reports of chest pain or palpitations Respiratory: No reports of shortness of breath or cough GI: reports of nausea, no reports of of vomiting, : No reports of dysuria or retention Neurovascular: reports of generalized weakness, All medications have been reviewed Active Medications Acetaminophen (Acetaminophen Tab 325 Mg Tab) 650 mg PO Q6HR PRN PRN Reason: Mild Pain or Fever > 100.5 Hydrocodone Bitart/Acetaminophen (Hydrocodone/Apap 5-325mg 1 Each Tab) 1 each PO Q4HR PRN PRN Reason: Severe Pain (Scale 7 to 10) Albuterol/Ipratropium (Ipratropium-Albuterol 3 Ml Neb) 3 ml INHALATION RT-QID PRN PRN Reason: Shortness Of Breath Or Wheezing Budesonide/Formoterol Fumarate (Symbicort 160-4.5 Mcg Inhaler) 2 puff INHALATION RT-BID ESTHER Last Admin: 08/11/22 08:05 Dose: 2 puff Dexamethasone Sodium Phosphate (Dexamethasone Sod Phosphate 4 Mg/Ml 1 Ml Vial) 4 mg IVP Q6HR ESTHER Last Admin: 08/11/22 12:33 Dose: 4 mg Famotidine (Famotidine 20 Mg Tab) 20 mg PO BID [facility] Last Admin: 08/11/22 08:18 Dose: 20 mg Heparin Sodium (Porcine) (Heparin Sodium,Porcine/Pf 5,000 Unit/0.5 Ml Syringe) 5,000 unit SQ Q8HR ESTHER Last Admin: 08/11/22 08:17 Dose: 5,000 unit Hydromorphone HCl (Hydromorphone 0.5 Mg/0.5 Ml Syringe) 0.5 mg IVP Q4HR PRN PRN Reason: Pain Last Admin: 08/10/22 10:16 Dose: 0.5 mg Ferric Sodium Gluconate 125 mg (/ Sodium Chloride) 110 mls @ 100 mls/hr IVPB DAILY [facility] Stop: 08/11/22 15:01 Last Admin: 08/11/22 09:14 Dose: 100 mls/hr Levetiracetam (Levetiracetam 500 Mg Tab) 500 mg PO Q12HR [facility] Last Admin: 08/11/22 08:18 Dose: 500 mg Naloxone HCl (Naloxone 0.4 Mg/Ml 1 Ml Vial) 0.2 mg IV Q2M PRN PRN Reason: Opioid Reversal Nicotine (Nicotine 21mg/24hr Patch) 1 patch TRANSDERM DAILY [facility] Last Admin: 08/11/22 08:17 Dose: 1 patch Ondansetron HCl (Ondansetron 4 Mg/2 Ml Vial) 4 mg IVP Q8HR PRN PRN Reason: Nausea And Vomiting Physical exam: GENERAL: The patient is alert and oriented x3, thin built, elderly appearing, unkept HEENT: Pupils are round and equally reacting to light. EOMI. no scleral icterus. No conjunctival pallor. Normocephalic, atraumatic. No pharyngeal erythema. No thyromegaly. CARDIOVASCULAR: S1 and S2 muffled PULMONARY: diminished breath sounds bilaterally with no wheezing or rhonchi noted. ABDOMEN: soft. Nontender on exam. non-distended, normoactive bowel sounds. No palpable organomegaly. MUSCULOSKELETAL: No joint swelling or deformity. EXTREMITIES: No cyanosis, clubbing, or pedal edema. NEUROLOGICAL: Gross neurological examination did not reveal any focal deficits. Diffuse weakness SKIN: No rashes. 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 3.1 cm solid sellar mass with suprasellar extension possible neoplasm, metastatic versus pituitary Diplopia possibly secondary to above Generalized weakness Weight loss over the last few months Anemia Continued ongoing nicotine dependence GI prophylaxis DVT prophylaxis Full code Plan: Recommend to continue with current medications and management with multiple medical consultations following including pulmonary, neurology, oncology Patient had MRI of the brain yesterday showing a 3.1 cm solid sellar mass and is having some diplopia and neurology has evaluated the patient recommending neurosurgery evaluation. Multiple attempts to [facility] and [facility] for tertiary [facility] transfer attempted although was reviewed and refused the patient. Recommend waiting lung biopsy results prior to initiating a transfer Neurology following and patient has been started on Decadron with concerns of edema and has discussed further with Dr. Ector Chan at [facility] who has accepted the patient and currently awaiting a bed. Patient is agreeable with this transfer and CODE STATUS was addressed and patient wishes to remain full code. Case management following as well as patient has no insurance and is homeless and needs to obtain Medicaid or resources to obtain some form of insurance. Overall prognosis is currently guarded at this time and will continue to monitor closely The impression and plan of care has been dictated by Breana Wilkins, nurse practitioner as directed. Dr. Bran MD I have performed a history and examination and MDM of this patient, discussed the same with the dictator, and agree with the dictator's assessment and plan as written ,documented as a scribe. Based on total visit time, I have performed more than 50% of the visit. Any additional findings or plans will be noted. Objective - Vital Signs Vital signs: Vital Signs Temp 98.5 F 08/11/22 11:55 Pulse 68 08/11/22 11:55 Resp 18 08/11/22 11:55 BP 114/70 08/11/22 11:55 Pulse Ox 97 08/11/22 11:55 FiO2 Intake & Output 08/10/22 08/11/22 08/11/22 18:59 06:59 18:59 Intake Total 1500 Output Total 958 088 5828 Balance -200 1000 -1700 Intake: Oral 1500 Output: Urine 113 469 4548 Other: Voiding Method Toilet # Voids 1 1 - Labs CBC & Chem 7: 08/10/22 07:08 08/10/22 07:08
--- NOTE | 2022-08-11 14:49 | P.PN ---
Subjective Progress Note Date: 08/11/22 Principal diagnosis: lung mass At today's visit patient is resting comfortably in bed. He reports feeling well. Denies shortness of breath and chest pain. Lung biopsy yesterday obtained, path pending. Pt reports blurred vision today. Also reports intermittent dizziness upon standing. No other reported complaints Objective - Vital Signs Vital signs: Vital Signs Temp 98.5 F 08/11/22 11:55 Pulse 68 08/11/22 11:55 Resp 18 08/11/22 11:55 BP 114/70 08/11/22 11:55 Pulse Ox 97 08/11/22 11:55 FiO2 Intake & Output 08/10/22 08/11/22 08/11/22 18:59 06:59 18:59 Intake Total 1500 Output Total 144 275 9003 Balance -200 1000 -1700 Intake: Oral 1500 Output: Urine 470 904 8362 Other: Voiding Method Toilet # Voids 1 1 - Constitutional General appearance: Present: average body habitus, no acute distress - EENT Eyes: Present: anicteric sclerae, EOMI ENT: Present: hearing grossly normal - Respiratory Details: breathing is even and unlabored - Cardiovascular Details: skin is warm and dry - Integumentary Integumentary: Present: pale - Neurologic Neurologic Comment(s): grossly intact - Musculoskeletal Musculoskeletal: Present: strength equal bilaterally - Psychiatric Psychiatric: Present: A&O x's 3, appropriate affect, intact judgment & insight - Labs CBC & Chem 7: 08/10/22 07:08 08/10/22 07:08 - Imaging and Cardiology MRI - head: report reviewed Assessment and Plan (1) Lung mass Current Visit: Yes Status: Acute Priority: High Code(s): R91.8 - OTHER NONSPECIFIC ABNORMAL FINDING OF LUNG FIELD SNOMED Code(s): 144663968 (2) Microcytic hypochromic anemia Current Visit: Yes Status: Acute Priority: High Code(s): D50.9 - IRON DEFICIENCY ANEMIA, UNSPECIFIED SNOMED Code(s): 64286109 Plan: Lung mass -Reviewed with pt concerning findings on the CT chest, concern for malignancy, need for biopsy and additional imagining to complete work up -Pt agreed and is willing to proceed with additional work up -Biopsy of lung mass obtained, path pending orning, the procedure was canceled. -CT AP revealed Right greater than left in size bilateral adrenal masses consistent with metastatic disease from lung cancer. No additional suspicious masses or adenopathy to suggest metastatic disease. 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 MRI brain revealed 3.1 cm lobulated homogeneous enhancing solid sellar mass with supersellar extension and mass effect worrisome for neoplasm. Pituitary macroadenoma needs to be considered. Metastatic disease unlikely but not excluded. Neuro following. They have attempted transfer to multiple tertiary centers for further evaluation By neurosurgery but unfortunately have been unsuccessful with transfer at this time. Neuorology/IM working on other possibilities for transfer. Rad/onc consulted for review of brain mass. Spoke with Dr. Abbott, he is agreement that patient needs further evaluation by neurosurgery. Microcytic, hypochromic anemia -Iron 18, iron saturation 7.8%, ferritin 723. Consistent with RUFINO, IV iron ordered. Vitamin B12, folate, copper, MMA normal. -Hemoglobin stable, 8.6. Denies any episodes of bleeding -Please transfuse for Hgb <7 -Social work has been consulted due to patient's lack of insurance coverage and homelessness. He reports that he has applied for Medicaid/Medicare in the past but was denied based on his income, and states that he is unable to afford private insurance through his work. Patient is also homeless and sleeps at his place of employment most of the time. Case management has also spoke with patient's sisters who are not willing to let patient live with them as they have a strained relationship. Patient does report he has a car and he would be able to travel for appointments for his oncological care. Will continue to follow so appropriate referrals closer to patient's home can be put in place for care.
[2022-08-11 18:43] VITALS: BP 109/65; PULSE 64
--- NOTE | 2022-08-11 23:28 | EEG ---
ELECTROENCEPHALOGRAM REPORT CLINICAL HISTORY: This is a 61-year-old gentleman with brain mass, who has altered mental status. The video EEG is obtained to evaluate for seizure and epileptiform activity. RELEVANT MEDICATIONS: 1. Keppra. 2. Decadron. EEG TYPE: A routine 21-channel EEG is performed with video using the 10/20 electrode placement system. DESCRIPTION: Wakefulness is only obtained. During awake state, the background consists of low-to- moderate voltage of 6.5 to 7 hertz activity that is well modulated, well sustained. There is no physiological stage 2 sleep architecture. There is no focal slowing. There is a moderate amount of diffuse myogenic artifact towards the end of the study. Interictal and ictal is none. ACTIVATION PROCEDURE: Photic stimulation did not evoke a posterior driving response. There is no abnormality during the photic stimulation. Hyperventilation is not performed. CLINICAL INTERPRETATION: This is an abnormal routine EEG. The background slowing is suggestive of mild encephalopathy. Otherwise, there is no focal slowing, epileptiform discharges, or seizure on the EEG. Clinical correlation is recommended. MMODL / IJN: [id number] /
--- NOTE | 2022-08-12 18:32 | P.DS ---
Providers Date of admission: 08/07/22 14:15 Expected date of discharge: 08/12/22 Attending physician: Sarah Vee Consults: 08/07/22 14:10 Consult Physician Urgent Consulting Provider: Vineet Olguin Consult Reason/Comments: New right lung mass Do you want consulting provider notified?: Yes Consult Physician Urgent Consulting Provider: Gilbert Brenner Consult Reason/Comments: Possible new lung cancer diagnosis Do you want consulting provider notified?: Yes 08/10/22 14:05 Consult Physician Urgent Consulting Provider: [place] Consult Reason/Comments: Brain lesion, concern for seizures Do you want consulting provider notified?: Yes 08/11/22 10:47 Consult Physician Routine Consulting Provider: Kiko Abbott Consult Reason/Comments: radiation Do you want consulting provider notified?: Already Contacted Primary care physician: Stated None Hospital Course: Final diagnosis New onset right upper lobe mass lesion for possible malignancy Metastatic mass to the right adrenal gland 3.1 cm solid sellar mass with suprasellar extension possible neoplasm, metastatic versus pituitary Diplopia possibly secondary to above Generalized weakness Weight loss over the last few months Anemia Continued ongoing nicotine dependence GI prophylaxis DVT prophylaxis Full code Discharge disposition Patient is being transferred in a stable condition with guarded prognosis to [facility]. Patient will follow-up with Dr. Ector Chan neurosurgeon who has accepted the patient. Patient is to continue with hemodialysis as scheduled. Total time taken is greater than 35 minutes. Hospital course This is a 61-year-old male who was recently admitted weakness and weight loss and found to have a large lung mass as well as a sellar mass on the MRI of the brain and neurology along with pulmonary and oncology following recommending transfer to tertiary treatment Center for further neurosurgery evaluation. Patient was having symptomatic diplopia requiring transfer to tertiary treatment for urgent evaluation. Patient was accepted by Dr. Ector Chan who spoke with neurologist Dr. Tello here. Patient awaiting a bed and will be transported once a bed is available. Currently no reports of chest pain, shortness of breath, or palpitations. Patient is afebrile. No reports of nausea or vomiting and patient is tolerating diet. Guarded Prognosis Physical exam: Gen: This is a 61-year-old male who is awake, alert and oriented 3, thin built, elderly appearing HEENT: Head is atraumatic, normocephalic. Pupils equal, round. Sclerae is anicteric. NECK: Supple. No JVD. No lymphadenopathy. No thyromegaly. LUNGS: Clear to auscultation. No wheezes or rhonchi. No intercostal retractions. HEART: Regular rate and rhythm. No murmur. ABDOMEN: Soft. Bowel sounds are present. No masses. No tenderness. EXTREMITIES: No pedal edema. No calf tenderness. NEUROLOGICAL: Patient is awake, alert and oriented x3. Cranial nerves 2 through 12 are grossly intact. Diffusely weak Please refer to medication reconciliation sheet for a list of medications. The impression and plan of care has been dictated by Breana Wilkins, Nurse Practitioner as directed. Dr. Bran MD I have performed a history and examination and MDM of this patient, discussed the same with the dictator, and agree with the dictator's assessment and plan as written ,documented as a scribe. Based on total visit time, I have performed more than 50% of the visit. Patient Condition at Discharge: Fair Plan - Discharge Summary Discharge Rx Participant: Yes New Discharge Prescriptions: No Action No Known Home Medications Discharge Medication List No Known Home Medications 08/07/22 [History] Follow up Appointment(s)/Referral(s): None,Stated [Primary Care Provider] - 1-2 days Discharge Disposition: TRANSFER TO SHORT TERM HOSP
== END 2022-08-11 23:23 | disposition short-term general hospital (02) | DRG 180 ==
LOC: EC 11:01 → 5NMEDONC 14:15
PROVIDERS: ADMIT Internal Medicine; ATTEND Internal Medicine
PROC: 0BBC3ZX Excision of Right Upper Lung Lobe, Percutaneous Approach, Diagnostic (ICD-10-PCS; principal; 2022-08-10)
DX: C34.11 Malignant neoplasm of upper lobe, right bronchus or lung (principal); G93.41 Metabolic encephalopathy; G93.6 Cerebral edema; C79.51 Secondary malignant neoplasm of bone; C79.71 Secondary malignant neoplasm of right adrenal gland; E87.1 Hypo-osmolality and hyponatremia; C79.72 Secondary malignant neoplasm of left adrenal gland; C79.31 Secondary malignant neoplasm of brain; F17.210 Nicotine dependence, cigarettes, uncomplicated; D50.9 Iron deficiency anemia, unspecified; Z59.00 Homelessness unspecified; H53.2 Diplopia; F14.11 Cocaine abuse, in remission; D63.8 Anemia in other chronic diseases classified elsewhere; R63.4 Abnormal weight loss; Z68.23 Body mass index [BMI] 23.0-23.9, adult; Z28.310 Unvaccinated for COVID-19; Z28.21 Immunization not carried out because of patient refusal; Z71.6 Tobacco abuse counseling; Z88.0 Allergy status to penicillin
CPT/HCPCS: 32408; 36415; 70553; 71045; 71046; 71260; 74177; 76380; 78306; 80048; 80053; 81003; 82525; 82607; 82728; 82747; 83540; 83550; 83605; 83735; 83921; 84100; 84443; 84484; 85025; 85045; 85610; 85730; 86308; 87635; 88305; 88341; 88342; 93005; 94640; 95816; 96360; 99285